=== PATIENT | male | born 1955 | race Caucasian/White ===

== ENCOUNTER 2019-10-12 18:20 | Emergency (ER) | payer MEDICARE, MEDICAID ==
[2019-10-12] MEDS ORDERED: MVI, Adult with Vitamin K 10 ML, Folic Acid 1 MG, Thiamine 100 MG, Magnesium Sulfate 2 ... IV ONE ×5 (18:35)
--- NOTE | 2019-10-12 18:38 | EDM.PDOC ---
ED HPI GENERAL MEDICAL PROBLEM - General Chief Complaint: General Stated Complaint: leg weakness Time Seen by Provider: 10/12/19 18:23 Source of Information: Reports: Patient, EMS, Other (The patients mothers animal cruelty investigation supervisor) History Limitations: Reports: No Limitations - History of Present Illness INITIAL COMMENTS - FREE TEXT/NARRATIVE: This patient is a 63 year old male that presents to the ER via EMS. Patient reports that he had fallen today while walking to the fridge to grab a beer. Patient reports that his legs felt weak bilaterally and he fell to the ground. Patient reports that he has fallen many times. EMS has reported patient has a known history of frequent falls and refusing ambulance transfers. EMS has reported today the patient lives in the home of his 90 year old mother and his mother reported she did not want him in the house anymore. EMS reports that the patient was unable to get up form the floor and took two of them to help him onto the EMS cot due to bilateral leg weakness. The patient denies injury. He denies hitting his head, loc, n, v, vision changes. His only complaints is 8/10 lower back pain, but he states "I have had this for years, not new today." The patient also reports that he has been short of breath for about 2 years and not any different today. He reports seeing a PCP for this without answers. The patient reports he smokes about 4 cigs a day, drinks 2 cans of beer a day. Patient uses a walker and wheelchair at home in the house. Onset: Today Onset Date: 10/12/19 Duration: Hour(s): (1) Front/Back Body Image: 1 - multiple superficial skin tear abrasions to the RUE. Severity: Mild Improves with: Reports: None Worsens with: Reports: None Associated Symptoms: Reports: Shortness of Breath (about 2 years), Weakness (generally). Denies: Confusion, Chest Pain, Cough, cough w sputum, Diaphoresis, Fever/Chills, Headaches, Loss of Appetite, Malaise, Nausea/Vomiting, Rash, Seizure, Syncope Lower Back Pain Score (Numeric/FACES): 8 - Related Data Allergies Allergy/AdvReac Type Severity Reaction Status Date / Time No Known Allergies Allergy Verified 10/12/19 18:30 Home Meds: Home Meds . [No Known Home Meds] 10/12/19 [History] Past Medical History - Infectious Disease History Infectious Disease History: Reports: None - Past Surgical History Musculoskeletal Surgical History: Reports: Other (See Below) Other Musculoskeletal Surgeries/Procedures:: knee surgery; "staph infection in my knee" Social & Family History - Tobacco Use Smoking Status *Q: Current Every Day Smoker Years of Tobacco use: 30 Packs/Tins Daily: 0.5 - Caffeine Use Caffeine Use: Reports: Soda - Recreational Drug Use Recreational Drug Use: No ED ROS GENERAL - Review of Systems Review Of Systems: See Below Constitutional: Reports: Weakness (generalized) HEENT: Reports: No Symptoms Respiratory: Reports: Shortness of Breath. Denies: Cough, Sputum Cardiovascular: Denies: Chest Pain, Dyspnea on Exertion, Edema, Lightheadedness, Palpitations, Syncope Endocrine: Reports: No Symptoms GI/Abdominal: Reports: No Symptoms. Denies: Abdominal Pain, Diarrhea, Nausea, Vomiting : Reports: No Symptoms Musculoskeletal: Reports: Back Pain (lower chronic for years) Skin: Reports: Wound (RUE) Neurological: Denies: Headache, Numbness, Seizure, Syncope, Tingling, Weakness, Change in Speech Psychiatric: Reports: No Symptoms Hematologic/Lymphatic: Reports: No Symptoms Immunologic: Reports: No Symptoms ED EXAM, GENERAL - Physical Exam Exam: See Below Exam Limited By: Intoxication General Appearance: Other (Disheveled, odorous) Eye Exam: Bilateral Eye: EOMI, Normal Inspection, PERRL Ears: Normal External Exam, Normal Canal, Hearing Grossly Normal, Normal TMs Ear Exam: Bilateral Ear: Auricle Normal, Canal Normal, TM normal Nose: Normal Inspection, Normal Mucosa, No Blood Throat/Mouth: Normal Oropharynx, Normal Voice, No Airway Compromise, Other (very significant poor dental hygeine, black partially missing teeth, decay. ) Head: Atraumatic, Normocephalic Neck: Normal Inspection, Supple, Non-Tender, Full Range of Motion. No: Tender Lateral, Tender Midline Respiratory/Chest: No Respiratory Distress, Lungs Clear, Normal Breath Sounds, No Accessory Muscle Use, Chest Non-Tender Cardiovascular: Normal Peripheral Pulses, No Edema, Tachycardia (116 on exam) Peripheral Pulses: 2+: Radial (L), Radial (R), Posterior Tibial (L), Posterior Tibial (R) GI/Abdominal: Soft, Non-Tender, No Organomegaly Back Exam: Normal Inspection, Full Range of Motion. No: CVA Tenderness (L), CVA Tenderness (R), Decreased Range of Motion, Paraspinal Tenderness, Vertebral Tenderness Extremities: Normal Range of Motion, Non-Tender, No Pedal Edema, Normal Capillary Refill Neurological: Alert, Oriented, CN II-XII Intact, Normal Cognition, No Motor/Sensory Deficits Psychiatric: Other (Initially argumentative, but now during exam is following commands without issue.) Skin Exam: Wound/Incision (multiple superficial skin tear abrasions to the RUE.) EKG INTERPRETATION EKG Date: 10/12/19 Time: 19:04 Rhythm: Other (sinus tach) Rate (Beats/Min): 101 QRS: Normal ST-T: Normal QT: Normal Comparison: NA - No Prior EKG Course - Vital Signs Last Recorded V/S: Last Vital Signs Temp 98.1 F 10/12/19 18:23 Pulse 118 H 10/12/19 18:23 Resp 18 10/12/19 18:23 BP 139/84 10/12/19 18:23 Pulse Ox 100 10/12/19 18:23 - Orders/Labs/Meds Orders: Active Orders 24 hr Category Date Time Status Vaccines to be Administered [RC] PER UNIT ROUTINE Care 10/12/19 18:50 Active Cervical Spine wo Cont [CT] Stat Exams 10/12/19 18:30 Taken Chest 1V Frontal [CR] Stat Exams 10/12/19 18:30 Taken Head wo Cont [CT] Stat Exams 10/12/19 18:30 Taken Labs: Laboratory Tests 10/12/19 10/12/19 10/12/19 Range/Units 18:33 18:33 18:33 WBC 4.8 L (5.0-10.0) 10^3/uL RBC 3.43 L (4.50-6.00) 10^6/uL Hgb 11.9 L (14.0-18.0) g/dL Hct 34.3 L (40.0-54.0) % MCV 100.0 H (82.0-94.0) fL MCH 34.7 H (27.0-32.0) pg MCHC 34.7 (33.0-38.0) g/dL RDW Coeff of Ronnie 14.8 (11.0-15.0) % Plt Count 203 (150-400) 10^3/uL Neut % (Auto) 53.6 (35-85) % Lymph % (Auto) 34.7 (10-55) % Armstrong % (Auto) 10.7 (0-16) % Eos % (Auto) 0.6 (0-5) % Baso % (Auto) 0.4 (0-3) % Neut # (Auto) 2.54 (1.80-7.00) 10^3/uL Lymph # (Auto) 1.65 (1.00-4.80) 10^3/uL Armstrong # (Auto) 0.51 (0.00-0.80) 10^3/uL Eos # (Auto) 0.03 (0.00-0.45) 10^3/uL Baso # (Auto) 0.02 10^3/uL PT (9.7-12.3) SEC INR (0.92-1.18) Sodium (136-145) mEq/L Potassium (3.5-5.0) mEq/L Chloride (98-106) mEq/L Carbon Dioxide (21-32) mmol/L BUN (7-18) mg/dL Creatinine (0.7-1.3) mg/dL Est Cr Clr Drug Dosing mL/min Estimated GFR (MDRD) (>=60) mL/min Glucose (75-99) mg/dL Calcium (8.4-10.1) mg/dL Total Bilirubin (0.0-1.0) mg/dL AST (15-37) U/L ALT (12-78) U/L Alkaline Phosphatase (46-116) U/L Lactate Dehydrogenase (100-190) U/L Creatine Kinase (35-232) U/L Troponin I (0.00-0.06) ng/mL Total Protein (6.4-8.2) g/dL Albumin (3.4-5.0) g/dL Urine Color Yellow (YELLOW) Urine Appearance Clear (CLEAR) Urine pH 6.0 (4.5-8.0) Ur Specific [place] 1.020 (1.003-1.020) Urine Protein Negative (NEGATIVE) mg/dL Urine Glucose (UA) Negative (NEGATIVE) mg/dL Urine Ketones Negative (NEGATIVE) mg/dL Urine Occult Blood Negative (NEGATIVE) Urine Nitrite Negative (NEGATIVE) Urine Bilirubin Negative (NEGATIVE) Urine Urobilinogen 0.2 (0.2-1.0) EU/dL Ur Leukocyte Esterase Negative (NEGATIVE) Urine RBC Not seen (0-5) /HPF Urine WBC Not seen (0-5) /HPF Urine Opiates Screen Negative (NEGATIVE) Ur Oxycodone Screen Negative (NEGATIVE) Urine Methadone Screen Negative (NEGATIVE) Ur Barbiturates Screen Negative (NEGATIVE) U Tricyclic Antidepress Negative (NEGATIVE) Ur Phencyclidine Scrn Negative (NEGATIVE) Ur Amphetamine Screen Negative (NEGATIVE) U Methamphetamines Scrn Negative (NEGATIVE) Urine MDMA Screen Negative (NEGATIVE) U Benzodiazepines Scrn Negative (NEGATIVE) Urine Cocaine Screen Negative (NEGATIVE) U Marijuana (THC) Screen Negative (NEGATIVE) Ethyl Alcohol (0-3) mg/dL 10/12/19 10/12/19 Range/Units 18:33 18:35 WBC (5.0-10.0) 10^3/uL RBC (4.50-6.00) 10^6/uL Hgb (14.0-18.0) g/dL Hct (40.0-54.0) % MCV (82.0-94.0) fL MCH (27.0-32.0) pg MCHC (33.0-38.0) g/dL RDW Coeff of Ronnie (11.0-15.0) % Plt Count (150-400) 10^3/uL Neut % (Auto) (35-85) % Lymph % (Auto) (10-55) % Armstrong % (Auto) (0-16) % Eos % (Auto) (0-5) % Baso % (Auto) (0-3) % Neut # (Auto) (1.80-7.00) 10^3/uL Lymph # (Auto) (1.00-4.80) 10^3/uL Armstrong # (Auto) (0.00-0.80) 10^3/uL Eos # (Auto) (0.00-0.45) 10^3/uL Baso # (Auto) 10^3/uL PT 10.3 (9.7-12.3) SEC INR 1.02 (0.92-1.18) Sodium 135 L (136-145) mEq/L Potassium 3.6 (3.5-5.0) mEq/L Chloride 97 L (98-106) mEq/L Carbon Dioxide 20 L (21-32) mmol/L BUN 7 (7-18) mg/dL Creatinine 0.8 (0.7-1.3) mg/dL Est Cr Clr Drug Dosing 85.64 mL/min Estimated GFR (MDRD) > 60 (>=60) mL/min Glucose 82 (75-99) mg/dL Calcium 8.3 L (8.4-10.1) mg/dL Total Bilirubin 0.4 (0.0-1.0) mg/dL AST 98 H (15-37) U/L ALT 81 H (12-78) U/L Alkaline Phosphatase 69 (46-116) U/L Lactate Dehydrogenase 195 H (100-190) U/L Creatine Kinase 247 H (35-232) U/L Troponin I < 0.017 (0.00-0.06) ng/mL Total Protein 7.0 (6.4-8.2) g/dL Albumin 3.8 (3.4-5.0) g/dL Urine Color (YELLOW) Urine Appearance (CLEAR) Urine pH (4.5-8.0) Ur Specific [place] (1.003-1.020) Urine Protein (NEGATIVE) mg/dL Urine Glucose (UA) (NEGATIVE) mg/dL Urine Ketones (NEGATIVE) mg/dL Urine Occult Blood (NEGATIVE) Urine Nitrite (NEGATIVE) Urine Bilirubin (NEGATIVE) Urine Urobilinogen (0.2-1.0) EU/dL Ur Leukocyte Esterase (NEGATIVE) Urine RBC (0-5) /HPF Urine WBC (0-5) /HPF Urine Opiates Screen (NEGATIVE) Ur Oxycodone Screen (NEGATIVE) Urine Methadone Screen (NEGATIVE) Ur Barbiturates Screen (NEGATIVE) U Tricyclic Antidepress (NEGATIVE) Ur Phencyclidine Scrn (NEGATIVE) Ur Amphetamine Screen (NEGATIVE) U Methamphetamines Scrn (NEGATIVE) Urine MDMA Screen (NEGATIVE) U Benzodiazepines Scrn (NEGATIVE) Urine Cocaine Screen (NEGATIVE) U Marijuana (THC) Screen (NEGATIVE) Ethyl Alcohol 143 H (0-3) mg/dL Meds: Medications Discontinued Medications Generic Name Dose Route Start Last Admin Trade Name Pilar PRN Reason Stop Dose Admin Diphtheria/Tetanus/Acell Pertussis 0.5 ml 10/12/19 18:50 10/12/19 19:25 Adacel IM 10/12/19 18:51 0.5 ml .ONCE ONE Administration Multivitamins/Minerals 10 ml/ 1,015.2 mls @ 500 mls/hr 10/12/19 18:35 10/12/19 18:51 Folic Acid 1 mg/ Thiamine HCl IV 10/12/19 20:36 500 mls/hr 100 mg/ Magnesium Sulfate 2 gm ONETIME ONE Administration / Sodium Chloride - Radiology Interpretation Free Text/Narrative:: Head Ct: No acute findings Cervical: No acute findings CXR: Emphysema, otherwise unremarkable CT Results Date: 10/12/19 CT Results Time: 19:40 - Re-Assessments/Exams Free Text/Narrative Re-Assessment/Exam: 10/12/19 18:45 Patient intoxicated with fall, will ct head and cervical. 10/12/19 19:07 I just spent 20 minutes talking with the patients mothers animal cruelty investigation supervisor. She has reported to me that the patient is scheduled Oct 19 to have an appointment with Dr. Schafer for shelter placement and has been working with [facility] on this placement. She reports that the patient is verbally abusive to his mother. She reports that he is an alcoholic and drinks a lot of beer everyday. She reports that he never showers, stinks, and is always dirty. She reports the mother who is 90 years old can not take care of him. The animal cruelty investigation supervisor (Yani) reports she has called adult protective services several times and local law enforcement is aware of the situation at the home. She requests the patient not return to the home. 10/12/19 19:34 The labs are back. I explained to the patient about his liver enzymes being elevated and dehydration. I discussed with him his alcoholism and the effects on his body and labs. I encouraged the patient to stay for hydration fluids. The patient refuses and says he just wants to go home. The patient request that I called Yani to come pick him up. I did call her, she is going to come talk to the patient. The RN asked if patient can just sign an AMA. The patient is above level ETOH and needs someone come sign him out and assume care of this patient. 10/12/19 19:48 Yani is talking to the patient, but he refuses to stay here. Yani will not give him a ride home or assume responsibility for this patient. The patient rep orts he can call other people to come get him, but he does not have his cell phone or the numbers to call other people. 10/12/19 19:59 The patient has attempted to get a hold of his neighbor Iván. Waiting call back. 10/12/19 20:12 Call back reported Iván is out of town. We then called local law enforcement to see if mother is willing to take son back into the house. Law enforcement will call us back. Patient is not homicidal or suicidal. No gait ataxia in ER now. Will discharge patient once he has a ride, as he can not walk. 10/12/19 20:18 Police called back and can give patient a ride home. Departure - Departure Time of Disposition: 20:35 Disposition: Home, Self-Care 01 Clinical Impression: Alcohol abuse, Dehydration Emphysema of lung Qualifiers: Emphysema type: unspecified Qualified Code(s): J43.9 - Emphysema, unspecified Fall Qualifiers: Encounter type: initial encounter Qualified Code(s): W19.XXXA - Unspecified fall, initial encounter - Discharge Information *PRESCRIPTION DRUG MONITORING PROGRAM REVIEWED*: Not Applicable *COPY OF PRESCRIPTION DRUG MONITORING REPORT IN PATIENT MALENA: Not Applicable Instructions: Chronic Obstructive Pulmonary Disease, [id number], Dehydration, Adult, [id number], Alcohol Abuse and Nutrition Referrals: PCP,None [Primary Care Provider] - Forms: ED Department Discharge Additional Instructions: Followup with Dr. Schafer Go home and rest Drink plenty of fluids Sepsis Event Note (ED) - Evaluation Sepsis Screening Result: No Definite Risk - Focused Exam Vital Signs: Vital Signs Temp Pulse Resp BP Pulse Ox 10/12/19 18:23 98.1 F 118 H 18 139/84 100 - My Orders Last 24 Hours: My Active Orders 10/12/19 18:30 Cervical Spine wo Cont [CT] Stat Chest 1V Frontal [CR] Stat Head wo Cont [CT] Stat 10/12/19 18:50 Vaccines to be Administered [RC] PER UNIT ROUTINE - Assessment/Plan Last 24 Hours: My Active Orders 10/12/19 18:30 Cervical Spine wo Cont [CT] Stat Chest 1V Frontal [CR] Stat Head wo Cont [CT] Stat 10/12/19 18:50 Vaccines to be Administered [RC] PER UNIT ROUTINE Plan: PLEASE SEE RN NOTE FOR PFSH
[2019-10-12] MEDS ORDERED: Diphtheria,Pertussis(Acell),Tetanus Vaccine 0.5 ML Syringe IM ONE (18:50)
[2019-10-12 19:07] LABS: CHLORIDE,CL 97 mEq/L (98-106); SODIUM,NA 135 mEq/L (136-145)
== END 2019-10-12 21:00 | disposition home or self-care (01) ==
LOC: CC.ED 18:20
DX: S60.511A Abrasion of right hand, initial encounter (principal); J43.9 Emphysema, unspecified; E86.0 Dehydration; F10.129 Alcohol abuse with intoxication, unspecified; F17.210 Nicotine dependence, cigarettes, uncomplicated; Z23 Encounter for immunization; Y90.6 Blood alcohol level of 120-199 mg/100 ml; W19.XXXA Unspecified fall, initial encounter
CPT/HCPCS: 36415; 70450; 71045; 72125; 80053; 80305-QW; 80307; 81001; 82550; 83615; 84484; 85025; 85610; 90471; 90715; 93005; 96365; 96366; 99284; 99285-25; J3411; J3475; J3490; J7030

== ENCOUNTER 2019-11-04 19:13 | Inpatient (IN) | payer MEDICARE, MEDICAID ==
--- NOTE | 2019-11-04 19:29 | EDM.PDOC ---
ED HPI GENERAL MEDICAL PROBLEM - General Chief Complaint: General Stated Complaint: fall Time Seen by Provider: 11/04/19 19:20 Source of Information: Reports: Patient History Limitations: Reports: No Limitations - History of Present Illness INITIAL COMMENTS - FREE TEXT/NARRATIVE: Amadeo is a 63 yo male who presents to the ED via [facility] with c/o fall. Apparently has been having frequent falls the last few months, which is very evident as patient has bruises and superficial skin abrasions in different healing stages throughout. Was unable to get up so called EMS. EMS reports they have been called to his house numerous time this week already. He had refused to be brought in previously, but was agreeable this time. Has been worked up for this ataxic gait in the past. 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 Apparently patient has been living with his 90 yo mother who is unable to care for him. He is supposed to be admitted to [facility] but has to be sober prior to admit, which he has been unable to do. Did see his PCP, Dr. Schafer earlier this week and was advised to be admitted to the hospital for his weakness, to which he refused. Currently, he denies any pain. He does not offer any complaints other than his chronic weakness, ringing in ears, and gait disturbance. Reports he smokes 4 cigarettes per day and only drinks 2 beers a day. Patient is obviously intoxicated. Onset: Gradual Associated Symptoms: Reports: Shortness of Breath, Weakness. Denies: Confusion, Chest Pain, Cough, cough w sputum, Diaphoresis, Fever/Chills, Headaches, Loss of Appetite, Malaise, Nausea/Vomiting, Rash, Seizure, Syncope Lower Back Pain Score (Numeric/FACES): 8 Headache Pain Score (Numeric/FACES): 9 - Related Data Allergies Allergy/AdvReac Type Severity Reaction Status Date / Time No Known Allergies Allergy Verified 11/04/19 19:23 Home Meds: Home Meds Propranolol HCl [Inderal Xl] 80 mg PO DAILY 11/04/19 [History] Tamsulosin [Flomax] 0.4 mg PO DAILY 11/04/19 [History] traMADol HCl [Tramadol HCl] 50 mg PO Q8HR PRN 11/04/19 [History] Past Medical History Psychiatric History: Reports: Addiction - Infectious Disease History Infectious Disease History: Reports: None - Past Surgical History Musculoskeletal Surgical History: Reports: Other (See Below) Other Musculoskeletal Surgeries/Procedures:: knee surgery; "staph infection in my knee" Social & Family History - Tobacco Use Smoking Status *Q: Current Every Day Smoker - Caffeine Use Caffeine Use: Reports: Soda - Alcohol Use Alcohol Use History: Yes Alcohol Use Frequency: Binges, Daily - Recreational Drug Use Recreational Drug Use: No - Living Situation & Occupation Occupation: Unemployed ED ROS GENERAL - Review of Systems Review Of Systems: Comprehensive ROS is negative, except as noted in HPI. Constitutional: Reports: Weakness Respiratory: Reports: Shortness of Breath. Denies: Cough Cardiovascular: Denies: Chest Pain, Edema, Lightheadedness, Syncope Endocrine: Reports: No Symptoms GI/Abdominal: Reports: No Symptoms. Denies: Abdominal Pain, Diarrhea, Nausea, Vomiting : Reports: No Symptoms Musculoskeletal: Reports: Back Pain Skin: Reports: Bruising, Other (skin tears/abrasions) Neurological: Reports: Headache, Difficulty Walking, Weakness. Denies: Confusion, Dizziness, Numbness, Paresthesia, Tingling, Tremors Psychiatric: Reports: Agitation Hematologic/Lymphatic: Reports: Easy Bruising ED EXAM, GENERAL - Physical Exam Exam: See Below Exam Limited By: Intoxication General Appearance: Alert, WD/WN, No Apparent Distress Eye Exam: Bilateral Eye: EOMI, Normal Fundi, Normal Inspection, PERRL Ears: Normal External Exam, Normal Canal, Hearing Grossly Normal, Normal TMs Nose: Normal Inspection, Normal Mucosa, No Blood Throat/Mouth: Other (missing teeth, rotted teeth, poor dentition) Head: Atraumatic, Normocephalic Neck: Normal Inspection, Supple, Non-Tender, Full Range of Motion Respiratory/Chest: No Respiratory Distress, Lungs Clear, Normal Breath Sounds, No Accessory Muscle Use, Chest Non-Tender Cardiovascular: Regular Rate, Rhythm, No Edema, Tachycardia GI/Abdominal: Normal Bowel Sounds, Soft, Non-Tender, No Organomegaly, No Distention, No Abnormal Bruit, No Mass Back Exam: Normal Inspection, Full Range of Motion, NT Extremities: Normal Range of Motion, Non-Tender, No Pedal Edema, Normal Capillary Refill Neurological: Alert, Oriented, Normal Cognition, No Motor/Sensory Deficits Psychiatric: Anxious, Other (Intoxicated) Skin Exam: Warm, Dry, Ecchymosis (generalized, significant bruising to shoulder and chest wall ), Wound/Incision (generalized superficial skin tears/abrasions to BUE and bilateral knees) Course - Vital Signs Last Recorded V/S: Last Vital Signs Temp 98.7 F 11/05/19 15:43 Pulse 83 11/05/19 15:43 Resp 18 11/05/19 15:43 BP 119/66 11/05/19 15:43 Pulse Ox 97 11/05/19 15:43 - Orders/Labs/Meds Orders: Medication Orders Chlordiazepoxide HCl (Librium) 10 mg PO BID [facility] Last Admin: 11/05/19 07:49 Dose: 10 mg Documented by: EFFIE Diazepam (Valium.) 5 mg PO TID PRN PRN Reason: Withdrawal Symptoms Enoxaparin Sodium (Lovenox) 40 mg SUBCUT Q24H [facility] Last Admin: 11/04/19 22:18 Dose: 40 mg Documented by: NITISH Folic Acid (Folic Acid) 1 mg PO DAILY [facility] Last Admin: 11/05/19 07:49 Dose: 1 mg Documented by: EFFIE Sodium Chloride (Normal Saline) 1,000 mls @ 125 mls/hr IV ASDIRECTED [facility] Last Admin: 11/05/19 14:44 Dose: 125 mls/hr Documented by: Infusion: 11/05/19 14:06 Dose: 125 mls/hr Documented by: Admin: 11/05/19 06:06 Dose: 125 mls/hr Documented by: ANN MARIE Infusion: 11/05/19 06:06 Dose: 125 mls/hr Documented by: ANN MARIE Admin: 11/04/19 22:14 Dose: 125 mls/hr Documented by: NITISH Ibuprofen (Motrin) 600 mg PO Q6H PRN PRN Reason: Pain/Fever Last Admin: 11/05/19 08:51 Dose: 600 mg Documented by: EFFIE Lorazepam (Ativan) 1 mg IVPUSH Q2H PRN PRN Reason: Withdrawal Symptoms Last Admin: 11/05/19 13:43 Dose: 1 mg Documented by: Admin: 11/05/19 02:50 Dose: 1 mg Documented by: Admin: 11/04/19 22:14 Dose: 1 mg Documented by: NITISH Nicotine (Habitrol) 14 mg TRDERM DAILY [facility] Last Admin: 11/05/19 07:50 Dose: 14 mg Documented by: Admin: 11/04/19 22:41 Dose: 14 mg Documented by: NITISH Ondansetron HCl (Zofran) 4 mg IV Q6H PRN PRN Reason: Nausea/Vomiting Polyethylene Glycol (Miralax) 17 gm PO DAILY PRN PRN Reason: Constipation Last Admin: 11/05/19 07:52 Dose: 17 gm Documented by: EFFIE Propranolol HCl (Inderal La) 80 mg PO DAILY [facility] Last Admin: 11/05/19 07:49 Dose: 80 mg Documented by: EFFIE Tamsulosin HCl (Flomax) 0.4 mg PO BEDTIME [facility] Thiamine HCl (Vitamin B-1) 100 mg IVPUSH DAILY [facility] Last Admin: 11/05/19 07:50 Dose: 100 mg Documented by: EFFIE Labs: Laboratory Tests 11/04/19 11/04/19 11/04/19 Range/Units 19:27 19:27 19:35 WBC 6.2 (5.0-10.0) 10^3/uL RBC 3.46 L (4.50-6.00) 10^6/uL Hgb 12.5 L (14.0-18.0) g/dL Hct 34.6 L (40.0-54.0) % MCV 100.0 H (82.0-94.0) fL MCH 36.1 H (27.0-32.0) pg MCHC 36.1 (33.0-38.0) g/dL RDW Coeff of Ronnie 13.3 (11.0-15.0) % Plt Count 130 L (150-400) 10^3/uL Neut % (Auto) 50.5 (35-85) % Lymph % (Auto) 39.5 (10-55) % [place] % (Auto) 9.4 (0-16) % Eos % (Auto) 0.3 (0-5) % Baso % (Auto) 0.3 (0-3) % Neut # (Auto) 3.11 (1.80-7.00) 10^3/uL Lymph # (Auto) 2.44 (1.00-4.80) 10^3/uL Canadian # (Auto) 0.58 (0.00-0.80) 10^3/uL Eos # (Auto) 0.02 (0.00-0.45) 10^3/uL Baso # (Auto) 0.02 10^3/uL PT (9.7-12.3) SEC INR (0.92-1.18) Sodium (136-145) mEq/L Potassium (3.5-5.0) mEq/L Chloride (98-106) mEq/L Carbon Dioxide (21-32) mmol/L BUN (7-18) mg/dL Creatinine (0.7-1.3) mg/dL Est Cr Clr Drug Dosing mL/min Estimated GFR (MDRD) (>=60) mL/min Glucose (75-99) mg/dL Calcium (8.4-10.1) mg/dL Total Bilirubin (0.0-1.0) mg/dL AST (15-37) U/L ALT (12-78) U/L Alkaline Phosphatase (46-116) U/L Lactate Dehydrogenase (100-190) U/L Creatine Kinase (35-232) U/L Troponin I (0.00-0.06) ng/mL C-Reactive Protein (0.2-0.8) mg/dL Total Protein (6.4-8.2) g/dL Albumin (3.4-5.0) g/dL Urine Color Light yellow (YELLOW) Urine Appearance Clear (CLEAR) Urine pH 6.0 (4.5-8.0) Ur Specific [place] 1.010 (1.003-1.020) Urine Protein Negative (NEGATIVE) mg/dL Urine Glucose (UA) Negative (NEGATIVE) mg/dL Urine Ketones Negative (NEGATIVE) mg/dL Urine Occult Blood Trace-lysed H (NEGATIVE) Urine Nitrite Negative (NEGATIVE) Urine Bilirubin Negative (NEGATIVE) Urine Urobilinogen 0.2 (0.2-1.0) EU/dL Ur Leukocyte Esterase Negative (NEGATIVE) Urine RBC 0-5 (0-5) /HPF Urine WBC Not seen (0-5) /HPF Ur Epithelial Cells Occasional H (NOT SEEN) /HPF Urine Bacteria Occasional H (NOT SEEN) /HPF Urine Opiates Screen Negative (NEGATIVE) Ur Oxycodone Screen Negative (NEGATIVE) Urine Methadone Screen Negative (NEGATIVE) Ur Barbiturates Screen Negative (NEGATIVE) U Tricyclic Antidepress Negative (NEGATIVE) Ur Phencyclidine Scrn Negative (NEGATIVE) Ur Amphetamine Screen Negative (NEGATIVE) U Methamphetamines Scrn Negative (NEGATIVE) Urine MDMA Screen Negative (NEGATIVE) U Benzodiazepines Scrn Negative (NEGATIVE) Urine Cocaine Screen Negative (NEGATIVE) U Marijuana (THC) Screen Negative (NEGATIVE) Ethyl Alcohol (0-3) mg/dL 11/04/19 11/04/19 Range/Units 19:35 19:35 WBC (5.0-10.0) 10^3/uL RBC (4.50-6.00) 10^6/uL Hgb (14.0-18.0) g/dL Hct (40.0-54.0) % MCV (82.0-94.0) fL MCH (27.0-32.0) pg MCHC (33.0-38.0) g/dL RDW Coeff of Ronnie (11.0-15.0) % Plt Count (150-400) 10^3/uL Neut % (Auto) (35-85) % Lymph % (Auto) (10-55) % [place] % (Auto) (0-16) % Eos % (Auto) (0-5) % Baso % (Auto) (0-3) % Neut # (Auto) (1.80-7.00) 10^3/uL Lymph # (Auto) (1.00-4.80) 10^3/uL Canadian # (Auto) (0.00-0.80) 10^3/uL Eos # (Auto) (0.00-0.45) 10^3/uL Baso # (Auto) 10^3/uL PT 9.2 L (9.7-12.3) SEC INR 0.91 L (0.92-1.18) Sodium 131 L (136-145) mEq/L Potassium 4.0 (3.5-5.0) mEq/L Chloride 94 L (98-106) mEq/L Carbon Dioxide 24 (21-32) mmol/L BUN 5 L (7-18) mg/dL Creatinine 0.6 L (0.7-1.3) mg/dL Est Cr Clr Drug Dosing 90.56 mL/min Estimated GFR (MDRD) > 60 (>=60) mL/min Glucose 90 (75-99) mg/dL Calcium 8.3 L (8.4-10.1) mg/dL Total Bilirubin 0.8 (0.0-1.0) mg/dL AST 234 H (15-37) U/L ALT 95 H (12-78) U/L Alkaline Phosphatase 82 (46-116) U/L Lactate Dehydrogenase 507 H (100-190) U/L Creatine Kinase 3143 H (35-232) U/L Troponin I < 0.017 (0.00-0.06) ng/mL C-Reactive Protein 3.0 H (0.2-0.8) mg/dL Total Protein 7.4 (6.4-8.2) g/dL Albumin 3.9 (3.4-5.0) g/dL Urine Color (YELLOW) Urine Appearance (CLEAR) Urine pH (4.5-8.0) Ur Specific [place] (1.003-1.020) Urine Protein (NEGATIVE) mg/dL Urine Glucose (UA) (NEGATIVE) mg/dL Urine Ketones (NEGATIVE) mg/dL Urine Occult Blood (NEGATIVE) Urine Nitrite (NEGATIVE) Urine Bilirubin (NEGATIVE) Urine Urobilinogen (0.2-1.0) EU/dL Ur Leukocyte Esterase (NEGATIVE) Urine RBC (0-5) /HPF Urine WBC (0-5) /HPF Ur Epithelial Cells (NOT SEEN) /HPF Urine Bacteria (NOT SEEN) /HPF Urine Opiates Screen (NEGATIVE) Ur Oxycodone Screen (NEGATIVE) Urine Methadone Screen (NEGATIVE) Ur Barbiturates Screen (NEGATIVE) U Tricyclic Antidepress (NEGATIVE) Ur Phencyclidine Scrn (NEGATIVE) Ur Amphetamine Screen (NEGATIVE) U Methamphetamines Scrn (NEGATIVE) Urine MDMA Screen (NEGATIVE) U Benzodiazepines Scrn (NEGATIVE) Urine Cocaine Screen (NEGATIVE) U Marijuana (THC) Screen (NEGATIVE) Ethyl Alcohol 272 H (0-3) mg/dL Meds: Medications Generic Name Dose Route Start Last Admin Trade Name Freq PRN Reason Stop Dose Admin Chlordiazepoxide HCl 10 mg 11/05/19 08:00 11/05/19 07:49 Librium PO 10 mg BID NIMESH Administration Diazepam 5 mg 11/04/19 20:50 Valium. PO TID PRN Withdrawal Symptoms Enoxaparin Sodium 40 mg 11/04/19 21:00 11/04/19 22:18 Lovenox SUBCUT 40 mg Q24H NIMESH Administration Folic Acid 1 mg 11/05/19 08:00 11/05/19 07:49 Folic Acid PO 1 mg DAILY NIMESH Administration Sodium Chloride 1,000 mls @ 125 mls/hr 11/04/19 20:50 11/05/19 14:44 Normal Saline IV 125 mls/hr ASDIRECTED NIMESH Administration Ibuprofen 600 mg 11/05/19 07:52 11/05/19 08:51 Motrin PO 600 mg Q6H PRN Administration Pain/Fever Lorazepam 1 mg 11/04/19 20:50 11/05/19 13:43 Ativan IVPUSH 1 mg Q2H PRN Administration Withdrawal Symptoms Nicotine 14 mg 11/04/19 22:30 11/05/19 07:50 Habitrol TRDERM 14 mg DAILY NIMESH Administration Ondansetron HCl 4 mg 11/04/19 20:50 Zofran IV Q6H PRN Nausea/Vomiting Polyethylene Glycol 17 gm 11/04/19 20:50 11/05/19 07:52 Miralax PO 17 gm DAILY PRN Administration Constipation Propranolol HCl 80 mg 11/05/19 08:00 11/05/19 07:49 Inderal La PO 80 mg DAILY NIMESH Administration Tamsulosin HCl 0.4 mg 11/05/19 20:00 Flomax PO BEDTIME NIMESH Thiamine HCl 100 mg 11/05/19 08:00 11/05/19 07:50 Vitamin B-1 IVPUSH 100 mg DAILY NIMESH Administration Discontinued Medications Generic Name Dose Route Start Last Admin Trade Name Freq PRN Reason Stop Dose Admin Chlordiazepoxide HCl 10 mg 11/04/19 20:50 Librium PO BID PRN Withdrawal Symptoms Multivitamins/Minerals 10 ml/ 1,015.2 mls @ 500 mls/hr 11/04/19 19:50 11/04/19 20:07 Folic Acid 1 mg/ Thiamine HCl IV 11/04/19 21:51 500 mls/hr 100 mg/ Magnesium Sulfate 2 gm ONETIME ONE Administration / Sodium Chloride - Re-Assessments/Exams Free Text/Narrative Re-Assessment/Exam: 11/04/19 20:09 Discussed labs and EKG with patient. Recommend admission for weakness and ETOH abuse. Patient needs to be sober and free of withdrawal symptoms prior to [facility] admit. Patient is agreeable with admission. He says he knows he needs to go to the long-term. Departure - Departure Time of Disposition: 20:11 Disposition: Admitted As Inpatient 64 Condition: Poor Clinical Impression: Rhabdomyolysis, Alcohol abuse, Frequent falls - Discharge Information *PRESCRIPTION DRUG MONITORING PROGRAM REVIEWED*: Not Applicable *COPY OF PRESCRIPTION DRUG MONITORING REPORT IN PATIENT MALENA: Not Applicable Sepsis Event Note (ED) - Evaluation Sepsis Screening Result: No Definite Risk - Problem List & Annotations (1) Rhabdomyolysis SNOMED Code(s): 515934940 Code(s): M62.82 - RHABDOMYOLYSIS Status: Acute Current Visit: Yes (2) Frequent falls SNOMED Code(s): 447445104 Code(s): R29.6 - REPEATED FALLS Status: Acute Current Visit: Yes (3) Alcohol abuse SNOMED Code(s): 28321234 Code(s): F10.10 - ALCOHOL ABUSE, UNCOMPLICATED Status: Acute Current Visit: No - Assessment/Plan Admission H&P: Please use this note as an admission H&P Assessment:: Rhabdomyolysis Frequent Falls Alcohol Abuse Vulnerable Adult Plan: Patient's CK elevated to 3143. He has multiple bruises and skin tears/abrasions from multiple falls. Kept falling and unable to get up. EMS called to house on multiple occurrences over the last few weeks. NA 131. ETOH 272. Elevated liver enzymes, likely liver cirrhosis. Patient with longstanding ETOH abuse. Has been recommended multiple times he needs admit to SNF as he is unable to adequately care for himself and is living with his 90 yo mother who also cannot care for him and wants him out of her house. Patient reports he is agreeable to hospital admit and SNF placement at this time. Consulted with Dr. Schafer. Will admit to acute with telemetry. Patient given banana bag in ED. Will start IVF at rate of 125 mls/hr. Start daily folic acid and thiamine. Nursing staff to start CIWAs 1x/shift until patient develops withdrawal symptoms then increas, suspect over the next 48-72 hrs. Ativan and Valium ordered PRN. Start 10 mg Librium. PT referral for strengthening. Repeat labs in am. Patient transferred to floor in stable condition.
[2019-11-04] MEDS ORDERED: MVI, Adult with Vitamin K 10 ML, Folic Acid 1 MG, Thiamine 100 MG, Magnesium Sulfate 2 ... IV ONE ×5 (19:50)
[2019-11-04 20:02] LABS: CHLORIDE,CL 94 mEq/L (98-106); SODIUM,NA 131 mEq/L (136-145)
[2019-11-04] MEDS ORDERED: chlordiazePOXIDE 10 MG Cap PO PRN (20:50)
[2019-11-04] MEDS ORDERED: Ondansetron 4 MG/2 ML SDV IV PRN (20:50)
[2019-11-04] MEDS ORDERED: Polyethylene Glycol 3350 Powder 17 GM Packet PO PRN (20:50)
[2019-11-04] MEDS: LORazepam 2 MG/ML Syringe IVPUSH PRN (22:14)
[2019-11-04] MEDS: Sodium Chloride 0.9% 1,000 ML IV SCH (22:14)
[2019-11-04] MEDS: Enoxaparin 40 MG/0.4 ML Syringe SUBCUT SCH ×2 (22:15→22:18)
[2019-11-04] MEDS: Nicotine 14 MG/24 Hr Patch TRDERM SCH (22:41)
[2019-11-05] MEDS: LORazepam 2 MG/ML Syringe IVPUSH PRN ×3 (02:50→20:41)
[2019-11-05] MEDS: Sodium Chloride 0.9% 1,000 ML IV SCH ×3 (06:06→22:44)
[2019-11-05] MEDS: chlordiazePOXIDE 10 MG Cap PO SCH ×2 (07:49→20:34)
[2019-11-05] MEDS: Folic Acid 1 MG Tab PO SCH (07:49)
[2019-11-05] MEDS: Propranolol 80 MG Cap.ER PO SCH (07:49)
[2019-11-05] MEDS: Thiamine 200 MG/2 ML MDV IVPUSH SCH (07:50)
[2019-11-05] MEDS: Nicotine 14 MG/24 Hr Patch TRDERM SCH (07:50)
[2019-11-05 08:00] LABS: CHLORIDE,CL 102 mEq/L (98-106); SODIUM,NA 136 mEq/L (136-145)
[2019-11-05] MEDS: Ibuprofen 200 MG Tab PO PRN (08:51)
--- NOTE | 2019-11-05 09:42 | PCM.PN ---
- General Info Date of Service: 11/05/19 Admission Dx/Problem (Free Text): Rhabdomylosis Alcohol Abuse Vulnerable Adult Frequent Falls Subjective Update: Sánchez is a 63 yo male who was admitted last evening with rhabdomyolysis, frequent falls, alcohol intoxication, and vulnerable adult. He had an uneventful evening. Nursing reports he slept well. They were able to get him showered and cleaned up. All skin tears were wrapped. Patient reports he is feeling well this morning. He does look much better this morning. Is much more calm and cooperative. His only complaint this morning is a headache. He has not currently had any other withdrawal symptoms, but did receive 2 doses of IV Ativan throughout the evening. He reports that helped him feel much better. Functional Status: Reports: Pain Controlled, Tolerating Diet, Urinating. Denies: Ambulating, New Symptoms - Review of Systems General: Reports: Weakness. Denies: Fever, Fatigue, Chills HEENT: Reports: Headaches. Denies: Sinus Congestion, Sore Throat, Visual Changes Pulmonary: Reports: Shortness of Breath. Denies: Cough Cardiovascular: Reports: No Symptoms Gastrointestinal: Reports: No Symptoms. Denies: Abdominal Pain, Diarrhea, Nausea, Vomiting Genitourinary: Reports: No Symptoms Musculoskeletal: Reports: Back Pain (lower back, chronic) Skin: Reports: Other (multiple scattered areas of ecchymosis and superficial skin tears, covered with dressing, CDI) Neurological: Reports: Headache, Difficulty Walking, Weakness (generalized). Denies: Dizziness, Numbness, Paresthesia, Tingling, Tremors Psychiatric: Denies: Confusion, Agitation, Hallucinations - Patient Data Vitals - Most Recent: Last Vital Signs Temp 99.7 F 11/05/19 08:51 Pulse 110 H 11/05/19 08:00 Resp 18 11/05/19 08:00 BP 143/83 H 11/05/19 08:00 Pulse Ox 95 11/05/19 08:00 Weight - Most Recent: 137 lb 9.6 oz I&O - Last 24 Hours: Intake & Output 11/04/19 11/05/19 11/05/19 22:59 06:59 14:59 Intake Total 983 Balance 983 Lab Results Last 24 Hours: Laboratory Results - last 24 hr 11/04/19 11/04/19 11/04/19 Range/Units 19:27 19:27 19:35 WBC 6.2 (5.0-10.0) 10^3/uL RBC 3.46 L (4.50-6.00) 10^6/uL Hgb 12.5 L (14.0-18.0) g/dL Hct 34.6 L (40.0-54.0) % MCV 100.0 H (82.0-94.0) fL MCH 36.1 H (27.0-32.0) pg MCHC 36.1 (33.0-38.0) g/dL RDW Coeff of Ronnie 13.3 (11.0-15.0) % Plt Count 130 L (150-400) 10^3/uL Neut % (Auto) 50.5 (35-85) % Lymph % (Auto) 39.5 (10-55) % [place] % (Auto) 9.4 (0-16) % Eos % (Auto) 0.3 (0-5) % Baso % (Auto) 0.3 (0-3) % Neut # (Auto) 3.11 (1.80-7.00) 10^3/uL Lymph # (Auto) 2.44 (1.00-4.80) 10^3/uL [place] # (Auto) 0.58 (0.00-0.80) 10^3/uL Eos # (Auto) 0.02 (0.00-0.45) 10^3/uL Baso # (Auto) 0.02 10^3/uL PT (9.7-12.3) SEC INR (0.92-1.18) Sodium (136-145) mEq/L Potassium (3.5-5.0) mEq/L Chloride (98-106) mEq/L Carbon Dioxide (21-32) mmol/L BUN (7-18) mg/dL Creatinine (0.7-1.3) mg/dL Est Cr Clr Drug Dosing mL/min Estimated GFR (MDRD) (>=60) mL/min Glucose (75-99) mg/dL Calcium (8.4-10.1) mg/dL Magnesium (1.8-2.4) mg/dL Total Bilirubin (0.0-1.0) mg/dL AST (15-37) U/L ALT (12-78) U/L Alkaline Phosphatase (46-116) U/L Lactate Dehydrogenase (100-190) U/L Creatine Kinase (35-232) U/L Troponin I (0.00-0.06) ng/mL C-Reactive Protein (0.2-0.8) mg/dL Total Protein (6.4-8.2) g/dL Albumin (3.4-5.0) g/dL Urine Color Light yellow (YELLOW) Urine Appearance Clear (CLEAR) Urine pH 6.0 (4.5-8.0) Ur Specific [place] 1.010 (1.003-1.020) Urine Protein Negative (NEGATIVE) mg/dL Urine Glucose (UA) Negative (NEGATIVE) mg/dL Urine Ketones Negative (NEGATIVE) mg/dL Urine Occult Blood Trace-lysed H (NEGATIVE) Urine Nitrite Negative (NEGATIVE) Urine Bilirubin Negative (NEGATIVE) Urine Urobilinogen 0.2 (0.2-1.0) EU/dL Ur Leukocyte Esterase Negative (NEGATIVE) Urine RBC 0-5 (0-5) /HPF Urine WBC Not seen (0-5) /HPF Ur Epithelial Cells Occasional H (NOT SEEN) /HPF Urine Bacteria Occasional H (NOT SEEN) /HPF Urine Opiates Screen Negative (NEGATIVE) Ur Oxycodone Screen Negative (NEGATIVE) Urine Methadone Screen Negative (NEGATIVE) Ur Barbiturates Screen Negative (NEGATIVE) U Tricyclic Antidepress Negative (NEGATIVE) Ur Phencyclidine Scrn Negative (NEGATIVE) Ur Amphetamine Screen Negative (NEGATIVE) U Methamphetamines Scrn Negative (NEGATIVE) Urine MDMA Screen Negative (NEGATIVE) U Benzodiazepines Scrn Negative (NEGATIVE) Urine Cocaine Screen Negative (NEGATIVE) U Marijuana (THC) Screen Negative (NEGATIVE) Ethyl Alcohol (0-3) mg/dL 11/04/19 11/04/19 11/05/19 Range/Units 19:35 19:35 07:30 WBC (5.0-10.0) 10^3/uL RBC (4.50-6.00) 10^6/uL Hgb (14.0-18.0) g/dL Hct (40.0-54.0) % MCV (82.0-94.0) fL MCH (27.0-32.0) pg MCHC (33.0-38.0) g/dL RDW Coeff of Ronnie (11.0-15.0) % Plt Count (150-400) 10^3/uL Neut % (Auto) (35-85) % Lymph % (Auto) (10-55) % [place] % (Auto) (0-16) % Eos % (Auto) (0-5) % Baso % (Auto) (0-3) % Neut # (Auto) (1.80-7.00) 10^3/uL Lymph # (Auto) (1.00-4.80) 10^3/uL [place] # (Auto) (0.00-0.80) 10^3/uL Eos # (Auto) (0.00-0.45) 10^3/uL Baso # (Auto) 10^3/uL PT 9.2 L (9.7-12.3) SEC INR 0.91 L (0.92-1.18) Sodium 131 L 136 (136-145) mEq/L Potassium 4.0 3.6 (3.5-5.0) mEq/L Chloride 94 L 102 (98-106) mEq/L Carbon Dioxide 24 24 (21-32) mmol/L BUN 5 L 5 L (7-18) mg/dL Creatinine 0.6 L 0.5 L (0.7-1.3) mg/dL Est Cr Clr Drug Dosing 90.56 130.03 mL/min Estimated GFR (MDRD) > 60 > 60 (>=60) mL/min Glucose 90 88 (75-99) mg/dL Calcium 8.3 L 7.9 L (8.4-10.1) mg/dL Magnesium 2.0 (1.8-2.4) mg/dL Total Bilirubin 0.8 (0.0-1.0) mg/dL AST 234 H (15-37) U/L ALT 95 H (12-78) U/L Alkaline Phosphatase 82 (46-116) U/L Lactate Dehydrogenase 507 H (100-190) U/L Creatine Kinase 3143 H 2199 H (35-232) U/L Troponin I < 0.017 (0.00-0.06) ng/mL C-Reactive Protein 3.0 H (0.2-0.8) mg/dL Total Protein 7.4 (6.4-8.2) g/dL Albumin 3.9 (3.4-5.0) g/dL Urine Color (YELLOW) Urine Appearance (CLEAR) Urine pH (4.5-8.0) Ur Specific [place] (1.003-1.020) Urine Protein (NEGATIVE) mg/dL Urine Glucose (UA) (NEGATIVE) mg/dL Urine Ketones (NEGATIVE) mg/dL Urine Occult Blood (NEGATIVE) Urine Nitrite (NEGATIVE) Urine Bilirubin (NEGATIVE) Urine Urobilinogen (0.2-1.0) EU/dL Ur Leukocyte Esterase (NEGATIVE) Urine RBC (0-5) /HPF Urine WBC (0-5) /HPF Ur Epithelial Cells (NOT SEEN) /HPF Urine Bacteria (NOT SEEN) /HPF Urine Opiates Screen (NEGATIVE) Ur Oxycodone Screen (NEGATIVE) Urine Methadone Screen (NEGATIVE) Ur Barbiturates Screen (NEGATIVE) U Tricyclic Antidepress (NEGATIVE) Ur Phencyclidine Scrn (NEGATIVE) Ur Amphetamine Screen (NEGATIVE) U Methamphetamines Scrn (NEGATIVE) Urine MDMA Screen (NEGATIVE) U Benzodiazepines Scrn (NEGATIVE) Urine Cocaine Screen (NEGATIVE) U Marijuana (THC) Screen (NEGATIVE) Ethyl Alcohol 272 H (0-3) mg/dL Med Orders - Current: Current Medications Chlordiazepoxide HCl (Librium) 10 mg PO BID [facility] Last Admin: 11/05/19 07:49 Dose: 10 mg Documented by: Diazepam (Valium.) 5 mg PO TID PRN PRN Reason: Withdrawal Symptoms Enoxaparin Sodium (Lovenox) 40 mg SUBCUT Q24H [facility] Last Admin: 11/04/19 22:18 Dose: 40 mg Documented by: Folic Acid (Folic Acid) 1 mg PO DAILY [facility] Last Admin: 11/05/19 07:49 Dose: 1 mg Documented by: Sodium Chloride (Normal Saline) 1,000 mls @ 125 mls/hr IV ASDIRECTED [facility] Last Admin: 11/05/19 06:06 Dose: 125 mls/hr Documented by: Ibuprofen (Motrin) 600 mg PO Q6H PRN PRN Reason: Pain/Fever Last Admin: 11/05/19 08:51 Dose: 600 mg Documented by: Lorazepam (Ativan) 1 mg IVPUSH Q2H PRN PRN Reason: Withdrawal Symptoms Last Admin: 11/05/19 02:50 Dose: 1 mg Documented by: Nicotine (Habitrol) 14 mg TRDERM DAILY [facility] Last Admin: 11/05/19 07:50 Dose: 14 mg Documented by: Ondansetron HCl (Zofran) 4 mg IV Q6H PRN PRN Reason: Nausea/Vomiting Polyethylene Glycol (Miralax) 17 gm PO DAILY PRN PRN Reason: Constipation Last Admin: 11/05/19 07:52 Dose: 17 gm Documented by: Propranolol HCl (Inderal La) 80 mg PO DAILY [facility] Last Admin: 11/05/19 07:49 Dose: 80 mg Documented by: Tamsulosin HCl (Flomax) 0.4 mg PO BEDTIME NIMESH Thiamine HCl (Vitamin B-1) 100 mg IVPUSH DAILY [facility] Last Admin: 11/05/19 07:50 Dose: 100 mg Documented by: Discontinued Medications Chlordiazepoxide HCl (Librium) 10 mg PO BID PRN PRN Reason: Withdrawal Symptoms Multivitamins/Minerals 10 ml/Folic Acid 1 mg/ Thiamine HCl 100 mg/ Magnesium Sulfate 2 gm / Sodium Chloride 1,015.2 mls @ 500 mls/hr IV ONETIME ONE Stop: 11/04/19 21:51 Last Admin: 11/04/19 20:07 Dose: 500 mls/hr Documented by: - Exam Quality Assessment: DVT Prophylaxis, Skin Breakdown (scattered superficial skin tears to BUE and bilateral knees) General: Alert, Oriented, Cooperative, No Acute Distress HEENT: Pupils Equal, Pupils Reactive, EOMI, Mucous Membr. Moist/[address] Neck: Supple Lungs: Clear to Auscultation, Normal Respiratory Effort Cardiovascular: Regular Rate, Regular Rhythm, Tachycardia (occasional on telemetry) GI/Abdominal Exam: Normal Bowel Sounds, Soft, Non-Tender, No Organomegaly, No Distention, No Abnormal Bruit, No Mass, Pelvis Stable Back Exam: Normal Inspection, Full Range of Motion Extremities: Normal Range of Motion, No Pedal Edema, Normal Capillary Refill Skin: Ecchymosis, Other (scattered superficial skin tears) Wound/Incisions: Dressing Dry and Intact, No Drainage Neurological: No New Focal Deficit Psy/Mental Status: Alert, Normal Affect, Normal Mood. No: Agitated, Withdrawal Symptoms (not currently, did receive 2 doses ativan throughout night) Sepsis Event Note - Evaluation Sepsis Screening Result: No Definite Risk - Focused Exam Vital Signs: Vital Signs Temp Temp Pulse Resp BP Pulse Ox 11/05/19 08:51 99.7 F 11/05/19 08:00 99.7 F 110 H 18 143/83 H 95 11/05/19 02:58 98.7 F 102 H 18 131/81 95 11/05/19 00:00 98.1 F 99 18 135/76 97 - Problem List & Annotations (1) Rhabdomyolysis SNOMED Code(s): 172623540 Code(s): M62.82 - RHABDOMYOLYSIS Status: Acute Current Visit: Yes (2) Frequent falls SNOMED Code(s): 988707615 Code(s): R29.6 - REPEATED FALLS Status: Acute Current Visit: Yes (3) Alcohol abuse SNOMED Code(s): 37247959 Code(s): F10.10 - ALCOHOL ABUSE, UNCOMPLICATED Status: Acute Current Visit: No - Problem List Review Problem List Initiated/Reviewed/Updated: Yes - My Orders Last 24 Hours: My Active Orders 11/04/19 20:20 Resuscitation Status Routine 11/04/19 20:50 LORazepam [Ativan] 1 mg IVPUSH Q2H PRN Ondansetron [Zofran] 4 mg IV Q6H PRN Sodium Chloride 0.9% [Normal Saline] 1,000 ml IV ASDIRECTED diazePAM [Valium.] 5 mg PO TID PRN polyethylene glycoL 3350 [MiraLAX] 17 gm PO DAILY PRN 11/04/19 20:50 Patient Status [ADT] Routine Cardiac Monitoring [RC] 08,1999 Oxygen Therapy [RC] .PRN Pulse Oximetry [RC] .PRN Up With Assistance [RC] .PRN Vital Signs [RC] 0000,0400,0800,1200,1600,2000 PT Evaluation and Treatment [CONS] Routine 11/04/19 21:00 Enoxaparin [Lovenox] 40 mg SUBCUT Q24H 11/04/19 22:30 Nicotine [Habitrol] 14 mg TRDERM DAILY 11/05/19 07:52 Ibuprofen [Motrin] 600 mg PO Q6H PRN 11/05/19 08:00 Folic Acid 1 mg PO DAILY Propranolol [Inderal LA] 80 mg PO DAILY Thiamine [Vitamin B-1] 100 mg IVPUSH DAILY chlordiazePOXIDE [Librium] 10 mg PO BID 11/05/19 20:00 CIWAA Assessment [RC] Q4H Tamsulosin [Flomax] 0.4 mg PO BEDTIME 11/06/19 07:00 BASIC METABOLIC PANEL,BMP [CHEM] DAILY CREATINE KINASE,CK [CHEM] DAILY 11/07/19 07:00 BASIC METABOLIC PANEL,BMP [CHEM] DAILY CREATINE KINASE,CK [CHEM] DAILY - Assessment Assessment:: Rhabdomylosis Frequent Falls Alcohol Abuse Vulnerable Adult - Plan Plan:: Patient appears to be much more relaxed and cooperative this morning. Nursing staff was kind enough to bathe him and dress his multiple superficial skin tears yesterday evening. He has not been able to care for himself for some time now. He does c/o headache this morning. Will add ibuprofen as needed. Na improved from 131 to 136. Creatinine Kinase improved from 3143 to 2199. Will continue IVF until tomorrow. Repeat labs in am. No current withdrawal symptoms. Given elevated ETOH level to 272, anticipate the next 24-48 hours patient will likely experience withdrawal symptoms. Will continue with every 4 hr CIWA assessments and increase to every 2 hours when patient starts experiencing withdrawal symptoms. Patient started on Librium BID, folic acid 1 mg daily, thiamine 100 mg daily. Will increase Librium to 20 mg BID if withdrawal symptoms start. Discussed case with Dr. Schafer, who is agreeable with plan. Consult case management for discharge planning. Potential d/c to [facility] SN[facility] Sunday or Sunday, pending withdrawal symptoms. Patient verbalized understanding and is agreeable with this plan.
[2019-11-05] MEDS: Tamsulosin 0.4 MG Cap.ER PO SCH (20:34)
[2019-11-05] MEDS: Enoxaparin 40 MG/0.4 ML Syringe SUBCUT SCH (20:40)
[2019-11-06] MEDS: LORazepam 2 MG/ML Syringe IVPUSH PRN ×7 (02:12→21:25)
[2019-11-06] MEDS: Diazepam 5 MG Tab PO PRN ×2 (02:53→15:27)
[2019-11-06] MEDS: Sodium Chloride 0.9% 1,000 ML IV SCH ×2 (06:35→16:04)
[2019-11-06] MEDS: Thiamine 200 MG/2 ML MDV IVPUSH SCH (07:34)
[2019-11-06] MEDS: Nicotine 14 MG/24 Hr Patch TRDERM SCH (07:40)
[2019-11-06] MEDS: Propranolol 80 MG Cap.ER PO SCH (07:41)
[2019-11-06] MEDS: chlordiazePOXIDE 10 MG Cap PO SCH ×3 (07:41→19:58)
[2019-11-06] MEDS: Folic Acid 1 MG Tab PO SCH (07:41)
[2019-11-06 07:59] LABS: CHLORIDE,CL 100 mEq/L (98-106); SODIUM,NA 133 mEq/L (136-145)
--- NOTE | 2019-11-06 09:31 | PCM.PN ---
- General Info Date of Service: 11/06/19 Admission Dx/Problem (Free Text): Rhabdomylosis Alcohol Abuse Vulnerable Adult Frequent Falls Functional Status: Reports: Pain Controlled, Tolerating Diet. Denies: Ambulating - Review of Systems General: Reports: Weakness, Malaise. Denies: Fever HEENT: Denies: Ear Pain, Sinus Congestion, Rhinitis Pulmonary: Denies: Shortness of Breath, Cough Cardiovascular: Denies: Chest Pain, Edema, Lightheadedness Gastrointestinal: Denies: Abdominal Pain, Nausea, Vomiting Genitourinary: Reports: No Symptoms Musculoskeletal: Reports: Shoulder Pain, Arm Pain, Back Pain Skin: Reports: Bruising Neurological: Reports: Confusion, Weakness Psychiatric: Reports: Hallucinations - Patient Data Vitals - Most Recent: Last Vital Signs Temp 98.7 F 11/06/19 04:00 Pulse 87 11/06/19 04:00 Resp 16 11/06/19 04:00 BP 120/73 11/06/19 04:00 Pulse Ox 93 L 11/06/19 04:00 Weight - Most Recent: 137 lb 9.6 oz I&O - Last 24 Hours: Intake & Output 11/05/19 11/06/19 11/06/19 22:59 06:59 14:59 Intake Total 1000 981 Balance 1000 981 Lab Results Last 24 Hours: Laboratory Results - last 24 hr 11/06/19 Range/Units 07:15 Sodium 133 L (136-145) mEq/L Potassium 3.3 L (3.5-5.0) mEq/L Chloride 100 (98-106) mEq/L Carbon Dioxide 25 (21-32) mmol/L BUN 5 L (7-18) mg/dL Creatinine 0.5 L (0.7-1.3) mg/dL Est Cr Clr Drug Dosing 130.03 mL/min Estimated GFR (MDRD) > 60 (>=60) mL/min Glucose 86 (75-99) mg/dL Calcium 8.0 L (8.4-10.1) mg/dL Total Bilirubin 1.3 H (0.0-1.0) mg/dL AST 156 H (15-37) U/L ALT 90 H (12-78) U/L Alkaline Phosphatase 73 (46-116) U/L Creatine Kinase 891 H (35-232) U/L Total Protein 6.2 L (6.4-8.2) g/dL Albumin 2.9 L (3.4-5.0) g/dL Med Orders - Current: Current Medications Chlordiazepoxide HCl (Librium) 25 mg PO BID [facility] Diazepam (Valium.) 5 mg PO TID PRN PRN Reason: Withdrawal Symptoms Last Admin: 11/06/19 02:53 Dose: 5 mg Documented by: Enoxaparin Sodium (Lovenox) 40 mg SUBCUT Q24H [facility] Last Admin: 11/05/19 20:40 Dose: 40 mg Documented by: Folic Acid (Folic Acid) 1 mg PO DAILY [facility] Last Admin: 11/06/19 07:41 Dose: 1 mg Documented by: Sodium Chloride (Normal Saline) 1,000 mls @ 125 mls/hr IV ASDIRECTED [facility] Last Admin: 11/06/19 06:35 Dose: 125 mls/hr Documented by: Ibuprofen (Motrin) 600 mg PO Q6H PRN PRN Reason: Pain/Fever Last Admin: 11/05/19 08:51 Dose: 600 mg Documented by: Lorazepam (Ativan) 1 mg IVPUSH Q2H PRN PRN Reason: Withdrawal Symptoms Last Admin: 11/06/19 08:42 Dose: 1 mg Documented by: Nicotine (Habitrol) 14 mg TRDERM DAILY [facility] Last Admin: 11/06/19 07:40 Dose: 14 mg Documented by: Ondansetron HCl (Zofran) 4 mg IV Q6H PRN PRN Reason: Nausea/Vomiting Polyethylene Glycol (Miralax) 17 gm PO DAILY PRN PRN Reason: Constipation Last Admin: 11/05/19 07:52 Dose: 17 gm Documented by: Propranolol HCl (Inderal La) 80 mg PO DAILY [facility] Last Admin: 11/06/19 07:41 Dose: 80 mg Documented by: Tamsulosin HCl (Flomax) 0.4 mg PO BEDTIME [facility] Last Admin: 11/05/19 20:34 Dose: 0.4 mg Documented by: Thiamine HCl (Vitamin B-1) 100 mg IVPUSH DAILY [facility] Last Admin: 11/06/19 07:34 Dose: 100 mg Documented by: Discontinued Medications Chlordiazepoxide HCl (Librium) 10 mg PO BID PRN PRN Reason: Withdrawal Symptoms Chlordiazepoxide HCl (Librium) 10 mg PO BID [facility] Last Admin: 11/06/19 07:41 Dose: 10 mg Documented by: Multivitamins/Minerals 10 ml/Folic Acid 1 mg/ Thiamine HCl 100 mg/ Magnesium Sulfate 2 gm / Sodium Chloride 1,015.2 mls @ 500 mls/hr IV ONETIME ONE Stop: 11/04/19 21:51 Last Admin: 11/04/19 20:07 Dose: 500 mls/hr Documented by: - Exam General: Alert, Oriented HEENT: Mucous Membr. Moist/[place] Neck: Supple Lungs: Clear to Auscultation, Normal Respiratory Effort Cardiovascular: Regular Rate, Regular Rhythm GI/Abdominal Exam: Normal Bowel Sounds, Soft, Non-Tender Back Exam: Paraspinal Tenderness Skin: Ecchymosis Wound/Incisions: Other (multiple skin tears, bruises and redness on arms and legs. Significant bruising to back.) Psy/Mental Status: Alert Sepsis Event Note - Evaluation Sepsis Screening Result: No Definite Risk - Focused Exam Vital Signs: Vital Signs Temp Pulse Resp BP Pulse Ox 11/06/19 04:00 98.7 F 87 16 120/73 93 L 11/06/19 00:00 82 - Problem List & Annotations (1) Alcohol abuse SNOMED Code(s): 84177830 Code(s): F10.10 - ALCOHOL ABUSE, UNCOMPLICATED Status: Acute Priority: High Current Visit: Yes (2) Frequent falls SNOMED Code(s): 867370671 Code(s): R29.6 - REPEATED FALLS Status: Acute Priority: High Current Visit: Yes (3) Rhabdomyolysis SNOMED Code(s): 818792117 Code(s): M62.82 - RHABDOMYOLYSIS Status: Acute Priority: High Current Visit: Yes Qualifiers: Rhabdomyolysis type: non-traumatic Qualified Code(s): M62.82 - Rhabdomyolysis (4) Dehydration SNOMED Code(s): 66823715 Code(s): E86.0 - DEHYDRATION Status: Acute Priority: High Current Visit: Yes - Problem List Review Problem List Initiated/Reviewed/Updated: Yes - My Orders Last 24 Hours: My Active Orders 11/06/19 20:00 chlordiazePOXIDE [Librium] 25 mg PO BID - Assessment Assessment:: Rhabdomylosis Frequent Falls Alcohol Abuse Vulnerable Adult - Plan Plan:: Patient appears to be much more relaxed and cooperative this morning. Nursing staff was kind enough to bathe him and dress his multiple superficial skin tears yesterday evening. He has not been able to care for himself for some time now. He does c/o headache this morning. Will add ibuprofen as needed. Na improved from 131 to 136. Creatinine Kinase improved from 3143 to 2199. Will continue IVF until tomorrow. Repeat labs in am. No current withdrawal symptoms. Given elevated ETOH level to 272, anticipate the next 24-48 hours patient will likely experience withdrawal symptoms. Will continue with every 4 hr CIWA assessments and increase to every 2 hours when patient starts experiencing withdrawal symptoms. Patient started on Librium BID, folic acid 1 mg daily, thiamine 100 mg daily. Will increase Librium to 20 mg BID if withdrawal symptoms start. Discussed case with Dr. Schafer, who is agreeable with plan. Consult case management for discharge planning. Potential d/c to [facility] SN[facility] Sunday or Sunday, pending withdrawal symptoms. Patient verbalized understanding and is agreeable with this plan. 11-06-19 Patient restless this am but cooperative. Was hallucinating last evening, was persistent about a black coat on the floor that needed to be picked up. This am, asks if the black coat was taken care of. Reoriented the patient. Denies headache today. Does have achy arms, shoulders and backs. Multiple skin tears, scabbing and bruising noted on arms. Significant bruising noted to back. Does require one nurse today for transfers, still weak. CK has much improved from 3143 on admit to 891 today. Sodium now at 133. Potassium normal. blood pressure is normal. Due to hallucinations, will increase his Librium to 20 mg TID. Recheck labs in am. child and family services worker to plan for discharge to long-term.
[2019-11-06] MEDS: Haloperidol Lactate 5 MG/ML SDV IM PRN (17:17)
[2019-11-06] MEDS: Tamsulosin 0.4 MG Cap.ER PO SCH (19:58)
[2019-11-06] MEDS ORDERED: chlordiazePOXIDE 10 MG Cap PO SCH (20:00)
[2019-11-06] MEDS: Enoxaparin 40 MG/0.4 ML Syringe SUBCUT SCH (20:01)
[2019-11-06] MEDS: Haloperidol 1 MG Tab PO PRN (22:08)
[2019-11-07] MEDS: LORazepam 2 MG/ML Syringe IVPUSH PRN (00:07)
[2019-11-07] MEDS: Haloperidol Lactate 5 MG/ML SDV IM PRN (01:18)
[2019-11-07] MEDS: Ibuprofen 200 MG Tab PO PRN ×2 (01:20→19:19)
[2019-11-07] MEDS: Sodium Chloride 0.9% 1,000 ML IV SCH ×2 (03:39→22:23)
[2019-11-07 07:31] LABS: CHLORIDE,CL 100 mEq/L (98-106); SODIUM,NA 134 mEq/L (136-145)
[2019-11-07] MEDS: Folic Acid 1 MG Tab PO SCH (08:39)
[2019-11-07] MEDS: Propranolol 80 MG Cap.ER PO SCH (08:39)
[2019-11-07] MEDS: chlordiazePOXIDE 10 MG Cap PO SCH ×3 (08:39→19:13)
[2019-11-07] MEDS: Nicotine 14 MG/24 Hr Patch TRDERM SCH (08:40)
[2019-11-07] MEDS: Thiamine 200 MG/2 ML MDV IVPUSH SCH (08:42)
[2019-11-07] MEDS: Potassium Chloride 10 MEQ Tab.ER PO SCH ×2 (08:55→16:36)
--- NOTE | 2019-11-07 13:55 | PCM.PN ---
- General Info Date of Service: 11/07/19 Admission Dx/Problem (Free Text): Rhabdomylosis Alcohol Abuse Vulnerable Adult Frequent Falls Functional Status: Reports: Pain Controlled, Tolerating Diet, Ambulating - Review of Systems General: Reports: Weakness, Fatigue, Malaise HEENT: Reports: No Symptoms Pulmonary: Denies: Shortness of Breath, Cough Cardiovascular: Denies: Chest Pain, Edema, Lightheadedness Gastrointestinal: Denies: Abdominal Pain, Nausea, Vomiting Genitourinary: Reports: No Symptoms Musculoskeletal: Reports: Back Pain Skin: Reports: Bruising Neurological: Reports: Weakness - Patient Data Vitals - Most Recent: Last Vital Signs Temp 96.5 F L 11/07/19 12:00 Pulse 72 11/07/19 12:00 Resp 20 11/07/19 12:00 BP 123/78 11/07/19 12:00 Pulse Ox 96 11/07/19 12:00 Weight - Most Recent: 137 lb 9.6 oz I&O - Last 24 Hours: Intake & Output 11/06/19 11/07/19 11/07/19 22:59 06:59 14:59 Intake Total 1000 Balance 1000 Lab Results Last 24 Hours: Laboratory Results - last 24 hr 11/07/19 11/07/19 Range/Units 06:55 07:00 Sodium 134 L (136-145) mEq/L Potassium 2.9 L* (3.5-5.0) mEq/L Chloride 100 (98-106) mEq/L Carbon Dioxide 25 (21-32) mmol/L BUN 7 (7-18) mg/dL Creatinine 0.6 L (0.7-1.3) mg/dL Est Cr Clr Drug Dosing 108.36 mL/min Estimated GFR (MDRD) > 60 (>=60) mL/min Glucose 86 (75-99) mg/dL Calcium 8.4 (8.4-10.1) mg/dL Magnesium 1.8 (1.8-2.4) mg/dL Total Bilirubin 1.3 H (0.0-1.0) mg/dL AST 122 H (15-37) U/L ALT 96 H (12-78) U/L Alkaline Phosphatase 81 (46-116) U/L Creatine Kinase 548 H (35-232) U/L Total Protein 6.6 (6.4-8.2) g/dL Albumin 3.0 L (3.4-5.0) g/dL Med Orders - Current: Current Medications Chlordiazepoxide HCl (Librium) 20 mg PO TID REPLACED BY [facility] Last Admin: 11/07/19 08:39 Dose: 20 mg Documented by: Diazepam (Valium.) 5 mg PO TID PRN PRN Reason: Withdrawal Symptoms Last Admin: 11/06/19 15:27 Dose: 5 mg Documented by: Enoxaparin Sodium (Lovenox) 40 mg SUBCUT Q24H REPLACED BY [facility] Last Admin: 11/06/19 20:01 Dose: 40 mg Documented by: Folic Acid (Folic Acid) 1 mg PO DAILY REPLACED BY [facility] Last Admin: 11/07/19 08:39 Dose: 1 mg Documented by: Haloperidol (Haldol) 1 mg PO Q1H PRN PRN Reason: Agitation Last Admin: 11/06/19 22:08 Dose: 1 mg Documented by: Haloperidol Lactate (Haldol) 1 mg IM Q1H PRN PRN Reason: Agitation Last Admin: 11/07/19 01:18 Dose: 1 mg Documented by: Sodium Chloride (Normal Saline) 1,000 mls @ 50 mls/hr IV ASDIRECTED REPLACED BY [facility] Last Admin: 11/07/19 03:39 Dose: 125 mls/hr Documented by: Ibuprofen (Motrin) 600 mg PO Q6H PRN PRN Reason: Pain/Fever Last Admin: 11/07/19 01:20 Dose: 600 mg Documented by: Lorazepam (Ativan) 1 mg IVPUSH Q2H PRN PRN Reason: Withdrawal Symptoms Last Admin: 11/07/19 00:07 Dose: 1 mg Documented by: Nicotine (Habitrol) 14 mg TRDERM DAILY REPLACED BY [facility] Last Admin: 11/07/19 08:40 Dose: 14 mg Documented by: Ondansetron HCl (Zofran) 4 mg IV Q6H PRN PRN Reason: Nausea/Vomiting Polyethylene Glycol (Miralax) 17 gm PO DAILY PRN PRN Reason: Constipation Last Admin: 11/05/19 07:52 Dose: 17 gm Documented by: Potassium Chloride (Klor-Con 10) 20 meq PO BIDMEALS REPLACED BY [facility] Last Admin: 11/07/19 08:55 Dose: 20 meq Documented by: Propranolol HCl (Inderal La) 80 mg PO DAILY REPLACED BY [facility] Last Admin: 11/07/19 08:39 Dose: 80 mg Documented by: Tamsulosin HCl (Flomax) 0.4 mg PO BEDTIME REPLACED BY [facility] Last Admin: 11/06/19 19:58 Dose: 0.4 mg Documented by: Thiamine HCl (Vitamin B-1) 100 mg IVPUSH DAILY REPLACED BY [facility] Last Admin: 11/07/19 08:42 Dose: 100 mg Documented by: Discontinued Medications Chlordiazepoxide HCl (Librium) 10 mg PO BID PRN PRN Reason: Withdrawal Symptoms Chlordiazepoxide HCl (Librium) 10 mg PO BID REPLACED BY [facility] Last Admin: 11/06/19 07:41 Dose: 10 mg Documented by: Chlordiazepoxide HCl (Librium) 25 mg PO BID REPLACED BY [facility] Multivitamins/Minerals 10 ml/Folic Acid 1 mg/ Thiamine HCl 100 mg/ Magnesium Sulfate 2 gm / Sodium Chloride 1,015.2 mls @ 500 mls/hr IV ONETIME ONE Stop: 11/04/19 21:51 Last Admin: 11/04/19 20:07 Dose: 500 mls/hr Documented by: - Exam General: Alert, Oriented (person and place) HEENT: Mucous Membr. Moist/[place] Neck: Supple Lungs: Clear to Auscultation, Normal Respiratory Effort Cardiovascular: Regular Rate, Regular Rhythm GI/Abdominal Exam: Normal Bowel Sounds, Soft, Non-Tender Extremities: No Pedal Edema Skin: Warm, Dry Wound/Incisions: Other (multiple skin tags, bruises and scabs noted on arms. Significant healing bruising noted on back. ) Neurological: No New Focal Deficit Sepsis Event Note - Evaluation Sepsis Screening Result: No Definite Risk - Focused Exam Vital Signs: Vital Signs Temp Pulse Resp BP Pulse Ox 11/07/19 12:00 96.5 F L 72 20 123/78 96 11/07/19 08:00 96.7 F L 91 18 113/72 97 11/07/19 04:00 97.1 F 89 18 102/63 96 - Problem List & Annotations (1) Rhabdomyolysis SNOMED Code(s): 996769913 Code(s): M62.82 - RHABDOMYOLYSIS Status: Acute Priority: High Qualifiers: Rhabdomyolysis type: non-traumatic Qualified Code(s): M62.82 - Rhabdomyolysis (2) Alcohol abuse SNOMED Code(s): 29146830 Code(s): F10.10 - ALCOHOL ABUSE, UNCOMPLICATED Status: Acute Priority: High (3) Frequent falls SNOMED Code(s): 211134280 Code(s): R29.6 - REPEATED FALLS Status: Acute Priority: High (4) Dehydration SNOMED Code(s): 94527600 Code(s): E86.0 - DEHYDRATION Status: Acute Priority: High - Problem List Review Problem List Initiated/Reviewed/Updated: Yes - My Orders Last 24 Hours: My Active Orders 11/06/19 14:00 chlordiazePOXIDE [Librium] 20 mg PO TID 11/06/19 16:09 Haloperidol Lactate [Haldol] 1 mg IM Q1H PRN haloperidoL [Haldol] 1 mg PO Q1H PRN 11/07/19 08:13 Potassium Chloride [Klor-Con 10] 20 meq PO BIDMEALS - Assessment Assessment:: Rhabdomylosis Frequent Falls Alcohol Abuse Vulnerable Adult - Plan Plan:: Patient appears to be much more relaxed and cooperative this morning. Nursing staff was kind enough to bathe him and dress his multiple superficial skin tears yesterday evening. He has not been able to care for himself for some time now. He does c/o headache this morning. Will add ibuprofen as needed. Na improved from 131 to 136. Creatinine Kinase improved from 3143 to 2199. Will continue IVF until tomorrow. Repeat labs in am. No current withdrawal symptoms. Given elevated ETOH level to 272, anticipate the next 24-48 hours patient will likely experience withdrawal symptoms. Will continue with every 4 hr CIWA assessments and increase to every 2 hours when patient starts experiencing withdrawal symptoms. Patient started on Librium BID, folic acid 1 mg daily, thiamine 100 mg daily. Will increase Librium to 20 mg BID if withdrawal symptoms start. Discussed case with Dr. Schafer, who is agreeable with plan. Consult case management for discharge planning. Potential d/c to [facility] Sunday or Sunday, pending withdrawal symptoms. Patient verbalized understanding and is agreeable with this plan. 11-06-19 Patient restless this am but cooperative. Was hallucinating last evening, was persistent about a black coat on the floor that needed to be picked up. This am, asks if the black coat was taken care of. Reoriented the patient. Denies headache today. Does have achy arms, shoulders and backs. Multiple skin tears, scabbing and bruising noted on arms. Significant bruising noted to back. Does require one nurse today for transfers, still weak. CK has much improved from 3143 on admit to 891 today. Sodium now at 133. Potassium normal. blood pressure is normal. Due to hallucinations, will increase his Librium to 20 mg TID. Recheck labs in am. guest services director to plan for discharge to correction. 11-07-2019 Patient calm and cooperative this am. Did have issues with increased restlessness, trying to climb out of bed, wanting to leave yesterday afternoon so Haldol was started and did provide some relief. Continues to complain of pain in his arms, shoulders, and back. Rates at an 8/10. Bruising on back is i mproving. Multiple scabs are noted to arms. CK continues to improve, down to 548. Potassium is low at 2.9. Magnesium is normal. Will start potassium supplementation today, recheck levels in am. Continue with PT. Possible transfer to swing bed tomorrow if labs normalize and needs further therapy. Awaiting correction placement.
[2019-11-07] MEDS: Tamsulosin 0.4 MG Cap.ER PO SCH (19:13)
[2019-11-07] MEDS: Enoxaparin 40 MG/0.4 ML Syringe SUBCUT SCH (20:40)
[2019-11-07] MEDS: Haloperidol 1 MG Tab PO PRN (22:21)
[2019-11-08] MEDS: Nicotine 14 MG/24 Hr Patch TRDERM SCH (07:34)
[2019-11-08] MEDS: Folic Acid 1 MG Tab PO SCH (07:35)
[2019-11-08] MEDS: chlordiazePOXIDE 10 MG Cap PO SCH (07:35)
[2019-11-08] MEDS: Potassium Chloride 10 MEQ Tab.ER PO SCH (07:35)
[2019-11-08] MEDS: Propranolol 80 MG Cap.ER PO SCH (07:36)
[2019-11-08] MEDS: Thiamine 200 MG/2 ML MDV IVPUSH SCH (07:36)
[2019-11-08 08:04] LABS: CHLORIDE,CL 103 mEq/L (98-106); SODIUM,NA 135 mEq/L (136-145)
[2019-11-08] MEDS ORDERED: traMADol 50 MG Tab PO PRN (10:35)
--- NOTE | 2019-11-08 10:44 | PCM.DCSUM1 ---
Discharge Summary - Hospital Course HPI Initial Comments: This patient was admitted for alcohol detox, hyponatremia, and senior living placement. This patient is in the process of home eviction, he was admitted confused, disoriented, and hallucinating. Patient has known history of alcoholism. The patient today reports that he has no complaints other than chronic back and neck pain. He reports that otherwise he feels pretty good today. The patient denies bell, dizziness, n, v, d, f, chest pain, shortness of breath. He does not have any current tremors or neurological deficits. He is alert and oriented. The patients labs today are much improved. The goal for this patient is to be admitted to the senior living once he has detox. account services associate saw this patient Sunday and report that on Sunday he will be able to be evaluated for senior living placement. I will continue patient admit and have renal social worker see this patient on Sunday for senior living placement. The patient will be swing today, as he is stable enough to do so. - Discharge Data Discharge Date: 11/08/19 Discharge Disposition: DC/Tfer W/I Hosp To Swing 61 Condition: Fair - Referral to Home Health Primary Care Physician: Gustavo Schafer MD - Patient Summary/Data Consults: Consultations 11/04/19 20:50 PT Evaluation and Treatment [CONS] Routine 11/05/19 12:19 Consult to Case Management/Battery Container Inspector [CONS] Routine - Discharge Plan *PRESCRIPTION DRUG MONITORING PROGRAM REVIEWED*: Not Applicable *COPY OF PRESCRIPTION DRUG MONITORING REPORT IN PATIENT MALENA: Not Applicable Home Medications: Home Meds Propranolol HCl [Inderal Xl] 80 mg PO DAILY 11/04/19 [History] Tamsulosin [Flomax] 0.4 mg PO DAILY 11/04/19 [History] traMADol HCl [Tramadol HCl] 50 mg PO Q8HR PRN 11/04/19 [History] Forms: ED Department Discharge Referrals: PCP,None [Ordering Only Provider] - - Discharge Summary/Plan Comment DC Time >30 min.: No - General Info Date of Service: 11/08/19 Functional Status: Reports: Pain Controlled (chronic back and neck pain), Tolerating Diet, Ambulating (with assistance), Urinating - Review of Systems General: Reports: No Symptoms HEENT: Reports: No Symptoms Pulmonary: Reports: No Symptoms Cardiovascular: Reports: No Symptoms Gastrointestinal: Reports: No Symptoms. Denies: Abdominal Pain, Nausea, Vomiting Genitourinary: Reports: No Symptoms Musculoskeletal: Reports: Neck Pain, Back Pain Skin: Reports: No Symptoms Neurological: Reports: No Symptoms. Denies: Confusion, Dizziness, Headache, Numbness, Seizure, Syncope, Tingling, Tremors, Trouble Speaking, Difficulty Walking, Weakness, Change in Speech, Gait Disturbance Psychiatric: Reports: No Symptoms. Denies: Confusion - Patient Data Vitals - Most Recent: Last Vital Signs Temp 96.6 F L 11/08/19 07:33 Pulse 79 11/08/19 07:33 Resp 18 11/08/19 07:33 BP 144/82 H 11/08/19 07:33 Pulse Ox 96 11/08/19 07:33 Weight - Most Recent: 137 lb 9.6 oz Lab Results - Last 24 hrs: Laboratory Results - last 24 hr 11/08/19 11/08/19 Range/Units 05:00 05:11 WBC 4.7 L (5.0-10.0) 10^3/uL RBC 3.25 L (4.50-6.00) 10^6/uL Hgb 11.8 L (14.0-18.0) g/dL Hct 34.0 L (40.0-54.0) % MCV 104.6 H (82.0-94.0) fL MCH 36.3 H (27.0-32.0) pg MCHC 34.7 (33.0-38.0) g/dL RDW Coeff of Ronnie 12.9 (11.0-15.0) % Plt Count 136 L (150-400) 10^3/uL MPV 9.7 fL Sodium 135 L (136-145) mEq/L Potassium 3.6 D (3.5-5.0) mEq/L Chloride 103 (98-106) mEq/L Carbon Dioxide 24 (21-32) mmol/L BUN 5 L (7-18) mg/dL Creatinine 0.5 L (0.7-1.3) mg/dL Est Cr Clr Drug Dosing 130.03 mL/min Estimated GFR (MDRD) > 60 (>=60) mL/min Glucose 86 (75-99) mg/dL Calcium 8.3 L (8.4-10.1) mg/dL Total Bilirubin 0.9 (0.0-1.0) mg/dL AST 68 H (15-37) U/L ALT 76 (12-78) U/L Alkaline Phosphatase 80 (46-116) U/L Creatine Kinase 192 (35-232) U/L Total Protein 6.5 (6.4-8.2) g/dL Albumin 2.8 L (3.4-5.0) g/dL Med Orders - Current: Current Medications Chlordiazepoxide HCl (Librium) 20 mg PO TID [facility] Last Admin: 11/08/19 07:35 Dose: 20 mg Documented by: Diazepam (Valium.) 5 mg PO TID PRN PRN Reason: Withdrawal Symptoms Last Admin: 11/06/19 15:27 Dose: 5 mg Documented by: Enoxaparin Sodium (Lovenox) 40 mg SUBCUT Q24H [facility] Last Admin: 11/07/19 20:40 Dose: 40 mg Documented by: Folic Acid (Folic Acid) 1 mg PO DAILY [facility] Last Admin: 11/08/19 07:35 Dose: 1 mg Documented by: Haloperidol (Haldol) 1 mg PO Q1H PRN PRN Reason: Agitation Last Admin: 11/07/19 22:21 Dose: 1 mg Documented by: Haloperidol Lactate (Haldol) 1 mg IM Q1H PRN PRN Reason: Agitation Last Admin: 11/07/19 01:18 Dose: 1 mg Documented by: Sodium Chloride (Normal Saline) 1,000 mls @ 50 mls/hr IV ASDIRECTED [facility] Last Admin: 11/07/19 22:23 Dose: 125 mls/hr Documented by: Ibuprofen (Motrin) 600 mg PO Q6H PRN PRN Reason: Pain/Fever Last Admin: 11/07/19 19:19 Dose: 600 mg Documented by: Lorazepam (Ativan) 1 mg IVPUSH Q2H PRN PRN Reason: Withdrawal Symptoms Last Admin: 11/07/19 00:07 Dose: 1 mg Documented by: Nicotine (Habitrol) 14 mg TRDERM DAILY [facility] Last Admin: 11/08/19 07:34 Dose: 14 mg Documented by: Non-Formulary Medication (Propranolol Hcl [Inderal Xl]) 80 mg PO DAILY [facility] Ondansetron HCl (Zofran) 4 mg IV Q6H PRN PRN Reason: Nausea/Vomiting Polyethylene Glycol (Miralax) 17 gm PO DAILY PRN PRN Reason: Constipation Last Admin: 11/05/19 07:52 Dose: 17 gm Documented by: Potassium Chloride (Klor-Con 10) 20 meq PO BIDMEALS [facility] Last Admin: 11/08/19 07:35 Dose: 20 meq Documented by: Propranolol HCl (Inderal La) 80 mg PO DAILY [facility] Last Admin: 11/08/19 07:36 Dose: 80 mg Documented by: Tamsulosin HCl (Flomax) 0.4 mg PO BEDTIME [facility] Last Admin: 11/07/19 19:13 Dose: 0.4 mg Documented by: Tamsulosin HCl (Flomax) 0.4 mg PO DAILY [facility] Thiamine HCl (Vitamin B-1) 100 mg IVPUSH DAILY [facility] Last Admin: 11/08/19 07:36 Dose: 100 mg Documented by: Tramadol HCl (Ultram) 50 mg PO Q8HR PRN PRN Reason: Pain Discontinued Medications Chlordiazepoxide HCl (Librium) 10 mg PO BID PRN PRN Reason: Withdrawal Symptoms Chlordiazepoxide HCl (Librium) 10 mg PO BID [facility] Last Admin: 11/06/19 07:41 Dose: 10 mg Documented by: Chlordiazepoxide HCl (Librium) 25 mg PO BID [facility] Multivitamins/Minerals 10 ml/Folic Acid 1 mg/ Thiamine HCl 100 mg/ Magnesium Sulfate 2 gm / Sodium Chloride 1,015.2 mls @ 500 mls/hr IV ONETIME ONE Stop: 11/04/19 21:51 Last Admin: 11/04/19 20:07 Dose: 500 mls/hr Documented by: - Exam General: Reports: Alert, Oriented, Cooperative, No Acute Distress HEENT: Reports: Pupils Equal, Pupils Reactive, EOMI, Mucous Membr. Moist/[place] Neck: Reports: Supple, Trachea Midline, No JVD Lungs: Reports: Clear to Auscultation, Normal Respiratory Effort Cardiovascular: Reports: Regular Rate, Regular Rhythm Back Exam: Reports: Normal Inspection, Full Range of Motion. Denies: CVA Tenderness (L), CVA Tenderness (R) Extremities: Normal Inspection, Normal Range of Motion, Non-Tender, No Pedal Edema, Normal Capillary Refill Skin: Reports: Warm, Dry, Ecchymosis (upper, mid, lower back bilaterally old. bilateral upper arms and bilateral lower legs old and healing from multiple falls at home from wheelchair due to ETOH hx.), Other (multiple abrasion BLE anterior and BLE arms.) Neurological: Reports: No New Focal Deficit, Normal Gait, Normal Speech, Strength Equal Bilateral, Sensation Intact, Cranial Nerves Intact Psy/Mental Status: Reports: Alert, Normal Affect, Normal Mood
[2019-11-09] MEDS ORDERED: Tamsulosin 0.4 MG Cap.ER PO SCH (08:00)
[2019-11-09] MEDS ORDERED: PROPRANOLOL HCL 80 MG PO SCH (08:00)
== END 2019-11-08 11:30 | disposition swing bed (61) | DRG 558 ==
LOC: CC.ED 19:13 → CC.MS 20:19 → UNDOADMIN 20:19 → CC.MS 20:20
PROVIDERS: ADMIT Nurse Practitioner Family; ATTEND Family Medicine
DX: R53.1 Weakness (principal); F10.10 Alcohol abuse, uncomplicated; M62.82 Rhabdomyolysis; F10.239 Alcohol dependence with withdrawal, unspecified; Y90.7 Blood alcohol level of 200-239 mg/100 ml; F17.200 Nicotine dependence, unspecified, uncomplicated; E87.1 Hypo-osmolality and hyponatremia; G89.29 Other chronic pain; M54.9 Dorsalgia, unspecified; M54.2 Cervicalgia; R29.6 Repeated falls; F17.210 Nicotine dependence, cigarettes, uncomplicated; Y90.8 Blood alcohol level of 240 mg/100 ml or more; E86.0 Dehydration; Z79.899 Other long term (current) drug therapy
CPT/HCPCS: 36415; 80048; 80053; 80305-QW; 80307; 81001; 82550; 83615; 83735; 84484; 85025; 85027; 85610; 86140; 93005; 96374; 97110-GP; 97161-GP; 97530-GP; 99285-25; A9270-GY; J1630; J1650; J2060; J3411; J3475; J3490; J7030

== ENCOUNTER 2019-11-08 10:34 | Inpatient (IN) | payer MEDICARE, MEDICAID ==
[2019-11-08] MEDS ORDERED: Ondansetron 4 MG/2 ML SDV IV PRN (15:47)
[2019-11-08] MEDS ORDERED: Diazepam 5 MG Tab PO PRN (15:51)
[2019-11-08] MEDS ORDERED: Haloperidol 1 MG Tab PO PRN (15:52)
[2019-11-08] MEDS ORDERED: Haloperidol Lactate 5 MG/ML SDV IM PRN (15:52)
[2019-11-08] MEDS ORDERED: LORazepam 2 MG/ML Syringe IVPUSH PRN (15:53)
[2019-11-08] MEDS ORDERED: Sodium Chloride 0.9% 1,000 ML IV SCH (16:00)
[2019-11-08] MEDS: traMADol 50 MG Tab PO PRN (17:17)
[2019-11-08] MEDS: Potassium Chloride 10 MEQ Tab.ER PO SCH (17:18)
[2019-11-08] MEDS: Tamsulosin 0.4 MG Cap.ER PO SCH (19:40)
[2019-11-08] MEDS: chlordiazePOXIDE 10 MG Cap PO SCH (19:40)
[2019-11-08] MEDS: Enoxaparin 40 MG/0.4 ML Syringe SUBCUT SCH (22:19)
[2019-11-09] MEDS: Nicotine 14 MG/24 Hr Patch TRDERM SCH ×2 (07:42→19:58)
[2019-11-09] MEDS: Potassium Chloride 10 MEQ Tab.ER PO SCH ×2 (07:44→17:02)
[2019-11-09] MEDS: Propranolol 80 MG Cap.ER PO SCH (07:44)
[2019-11-09] MEDS: Folic Acid 1 MG Tab PO SCH (07:44)
[2019-11-09] MEDS: chlordiazePOXIDE 10 MG Cap PO SCH ×3 (07:44→19:54)
[2019-11-09] MEDS ORDERED: Thiamine 100 MG in Sodium Chloride 0.9% 100 ML IV SCH (08:00)
[2019-11-09] MEDS: traMADol 50 MG Tab PO PRN ×2 (13:34→23:20)
[2019-11-09] MEDS: Tamsulosin 0.4 MG Cap.ER PO SCH (19:54)
[2019-11-09] MEDS: Thiamine 100 MG Tab PO SCH (19:55)
[2019-11-09] MEDS: Enoxaparin 40 MG/0.4 ML Syringe SUBCUT SCH (20:02)
[2019-11-10] MEDS: Nicotine 14 MG/24 Hr Patch TRDERM SCH (08:08)
[2019-11-10] MEDS: Propranolol 80 MG Cap.ER PO SCH (08:08)
[2019-11-10] MEDS: Potassium Chloride 10 MEQ Tab.ER PO SCH ×2 (08:09→16:56)
[2019-11-10] MEDS: Folic Acid 1 MG Tab PO SCH (08:09)
[2019-11-10] MEDS: chlordiazePOXIDE 10 MG Cap PO SCH ×3 (08:09→19:10)
[2019-11-10 08:22] LABS: CHLORIDE,CL 104 mEq/L (98-106); SODIUM,NA 137 mEq/L (136-145)
[2019-11-10] MEDS: traMADol 50 MG Tab PO PRN ×2 (15:22→19:10)
[2019-11-10] MEDS: Tamsulosin 0.4 MG Cap.ER PO SCH (19:10)
[2019-11-10] MEDS: Thiamine 100 MG Tab PO SCH (20:07)
[2019-11-10] MEDS: Enoxaparin 40 MG/0.4 ML Syringe SUBCUT SCH (20:08)
[2019-11-11] MEDS: Propranolol 80 MG Cap.ER PO SCH (08:00)
[2019-11-11] MEDS: Folic Acid 1 MG Tab PO SCH (08:00)
[2019-11-11] MEDS: Potassium Chloride 10 MEQ Tab.ER PO SCH ×2 (08:01→16:45)
[2019-11-11] MEDS: chlordiazePOXIDE 10 MG Cap PO SCH ×3 (08:01→19:15)
[2019-11-11] MEDS: Nicotine 14 MG/24 Hr Patch TRDERM SCH (08:01)
[2019-11-11] MEDS: Polyethylene Glycol 3350 Powder 17 GM Packet PO PRN (13:43)
[2019-11-11] MEDS: traMADol 50 MG Tab PO PRN (16:46)
[2019-11-11] MEDS: Tamsulosin 0.4 MG Cap.ER PO SCH (19:15)
[2019-11-11] MEDS: Thiamine 100 MG Tab PO SCH (19:15)
[2019-11-11] MEDS: Enoxaparin 40 MG/0.4 ML Syringe SUBCUT SCH (20:02)
[2019-11-12] MEDS: Polyethylene Glycol 3350 Powder 17 GM Packet PO PRN (07:47)
[2019-11-12] MEDS: Nicotine 14 MG/24 Hr Patch TRDERM SCH (07:47)
[2019-11-12] MEDS: Potassium Chloride 10 MEQ Tab.ER PO SCH ×2 (07:48→17:11)
[2019-11-12] MEDS: chlordiazePOXIDE 10 MG Cap PO SCH ×3 (07:48→19:29)
[2019-11-12] MEDS: Propranolol 80 MG Cap.ER PO SCH (07:48)
[2019-11-12] MEDS: Folic Acid 1 MG Tab PO SCH (07:48)
[2019-11-12] MEDS: traMADol 50 MG Tab PO PRN (14:50)
[2019-11-12] MEDS: Thiamine 100 MG Tab PO SCH (19:29)
[2019-11-12] MEDS: Tamsulosin 0.4 MG Cap.ER PO SCH (19:29)
[2019-11-12] MEDS: Enoxaparin 40 MG/0.4 ML Syringe SUBCUT SCH (22:44)
[2019-11-13] MEDS: traMADol 50 MG Tab PO PRN ×2 (07:09→20:02)
[2019-11-13] MEDS: Potassium Chloride 10 MEQ Tab.ER PO SCH ×2 (07:28→18:03)
[2019-11-13] MEDS: Nicotine 14 MG/24 Hr Patch TRDERM SCH (07:28)
[2019-11-13] MEDS: Folic Acid 1 MG Tab PO SCH (07:28)
[2019-11-13] MEDS: Propranolol 80 MG Cap.ER PO SCH (07:28)
[2019-11-13] MEDS: chlordiazePOXIDE 10 MG Cap PO SCH ×2 (07:28→19:59)
[2019-11-13] MEDS ORDERED: Sodium Chloride 0.9% 1,000 ML IV ONE (09:10)
[2019-11-13] MEDS ORDERED: Flumazenil 0.1 MG/ML 5 ML MDV IVPUSH STA (09:10)
[2019-11-13] MEDS ORDERED: Flumazenil 0.1 MG/ML 5 ML MDV ONE (09:25)
[2019-11-13 11:04] LABS: CHLORIDE,CL 101 mEq/L (98-106); SODIUM,NA 134 mEq/L (136-145)
[2019-11-13] MEDS: levETIRAcetam 500 MG Tab PO SCH ×2 (11:57→20:00)
--- NOTE | 2019-11-13 12:06 | PCM.PN ---
- General Info Date of Service: 11/13/19 Admission Dx/Problem (Free Text): Rhabdomyolysis Alcohol Abuse Frequent Falls Subjective Update: Called to patient's room this am as had acutely become unresponsive with apnea. Had been sitting up eating breakfast at 8, nurse in to room at 9 to put on Abdulkadir Hose when found him unresponsive. Periods of apnea lasting 4-5 seconds. Color pale, diaphoretic. - Patient Data Vitals - Most Recent: Last Vital Signs Temp 99.5 F 11/13/19 07:25 Pulse 87 11/13/19 11:40 Resp 16 11/13/19 11:40 BP 113/64 11/13/19 11:40 Pulse Ox 97 11/13/19 11:40 Weight - Most Recent: 140 lb 11.2 oz Lab Results Last 24 Hours: Laboratory Results - last 24 hr 11/13/19 11/13/19 11/13/19 Range/Units 09:14 10:32 10:33 WBC 8.5 (5.0-10.0) 10^3/uL RBC 3.22 L (4.50-6.00) 10^6/uL Hgb 11.7 L (14.0-18.0) g/dL Hct 35.0 L (40.0-54.0) % MCV 108.7 H (82.0-94.0) fL MCH 36.3 H (27.0-32.0) pg MCHC 33.4 (33.0-38.0) g/dL RDW Coeff of Ronnie 13.1 (11.0-15.0) % Plt Count 407 H (150-400) 10^3/uL Neut % (Auto) 77.8 (35-85) % Lymph % (Auto) 13.5 (10-55) % [place] % (Auto) 8.3 (0-16) % Eos % (Auto) 0.2 (0-5) % Baso % (Auto) 0.2 (0-3) % Neut # (Auto) 6.61 (1.80-7.00) 10^3/uL Lymph # (Auto) 1.15 (1.00-4.80) 10^3/uL [place] # (Auto) 0.71 (0.00-0.80) 10^3/uL Eos # (Auto) 0.02 (0.00-0.45) 10^3/uL Baso # (Auto) 0.02 10^3/uL PT 9.9 (9.7-12.3) SEC INR 0.98 (0.92-1.18) Sodium (136-145) mEq/L Potassium (3.5-5.0) mEq/L Chloride (98-106) mEq/L Carbon Dioxide (21-32) mmol/L BUN (7-18) mg/dL Creatinine (0.7-1.3) mg/dL Est Cr Clr Drug Dosing mL/min Estimated GFR (MDRD) (>=60) mL/min Glucose (75-99) mg/dL POC Glucose 83 (75-105) mg/dl Calcium (8.4-10.1) mg/dL Total Bilirubin (0.0-1.0) mg/dL AST (15-37) U/L ALT (12-78) U/L Alkaline Phosphatase (46-116) U/L Creatine Kinase (35-232) U/L Troponin I (0.00-0.06) ng/mL Total Protein (6.4-8.2) g/dL Albumin (3.4-5.0) g/dL 11/13/19 Range/Units 10:33 WBC (5.0-10.0) 10^3/uL RBC (4.50-6.00) 10^6/uL Hgb (14.0-18.0) g/dL Hct (40.0-54.0) % MCV (82.0-94.0) fL MCH (27.0-32.0) pg MCHC (33.0-38.0) g/dL RDW Coeff of Ronnie (11.0-15.0) % Plt Count (150-400) 10^3/uL Neut % (Auto) (35-85) % Lymph % (Auto) (10-55) % [place] % (Auto) (0-16) % Eos % (Auto) (0-5) % Baso % (Auto) (0-3) % Neut # (Auto) (1.80-7.00) 10^3/uL Lymph # (Auto) (1.00-4.80) 10^3/uL [place] # (Auto) (0.00-0.80) 10^3/uL Eos # (Auto) (0.00-0.45) 10^3/uL Baso # (Auto) 10^3/uL PT (9.7-12.3) SEC INR (0.92-1.18) Sodium 134 L (136-145) mEq/L Potassium 4.8 D (3.5-5.0) mEq/L Chloride 101 (98-106) mEq/L Carbon Dioxide 25 (21-32) mmol/L BUN 5 L (7-18) mg/dL Creatinine 0.8 D (0.7-1.3) mg/dL Est Cr Clr Drug Dosing 83.10 mL/min Estimated GFR (MDRD) > 60 (>=60) mL/min Glucose 160 H D (75-99) mg/dL POC Glucose (75-105) mg/dl Calcium 8.6 (8.4-10.1) mg/dL Total Bilirubin 0.3 (0.0-1.0) mg/dL AST 22 (15-37) U/L ALT 37 (12-78) U/L Alkaline Phosphatase 79 (46-116) U/L Creatine Kinase 38 (35-232) U/L Troponin I < 0.017 (0.00-0.06) ng/mL Total Protein 6.9 (6.4-8.2) g/dL Albumin 3.0 L (3.4-5.0) g/dL Med Orders - Current: Current Medications Chlordiazepoxide HCl (Librium) 10 mg PO BID [facility] Folic Acid (Folic Acid) 1 mg PO DAILY [facility] Last Admin: 11/13/19 07:28 Dose: 1 mg Documented by: Levetiracetam (Keppra) 500 mg PO BID [facility] Lorazepam (Ativan) 2 mg IVPUSH Q2H PRN PRN Reason: Anxiety Nicotine (Habitrol) 14 mg TRDERM DAILY [facility] Last Admin: 11/13/19 07:28 Dose: 14 mg Documented by: Ondansetron HCl (Zofran) 4 mg IV Q6H PRN PRN Reason: Nausea/Vomiting Polyethylene Glycol (Miralax) 17 gm PO DAILY PRN PRN Reason: Constipation Last Admin: 11/12/19 07:47 Dose: 17 gm Documented by: Potassium Chloride (Klor-Con 10) 20 meq PO BIDMEALS [facility] Last Admin: 11/13/19 07:28 Dose: 20 meq Documented by: Propranolol HCl (Inderal La) 80 mg PO DAILY [facility] Last Admin: 11/13/19 07:28 Dose: 80 mg Documented by: Tamsulosin HCl (Flomax) 0.4 mg PO BEDTIME [facility] Last Admin: 11/12/19 19:29 Dose: 0.4 mg Documented by: Thiamine HCl (Vitamin B-1) 100 mg PO BEDTIME [facility] Last Admin: 11/12/19 19:29 Dose: 100 mg Documented by: Tramadol HCl (Ultram) 50 mg PO Q8H PRN PRN Reason: Pain Last Admin: 11/13/19 07:09 Dose: 50 mg Documented by: Discontinued Medications Chlordiazepoxide HCl (Librium) 20 mg PO TID [facility] Last Admin: 11/13/19 07:28 Dose: 20 mg Documented by: Diazepam (Valium.) 5 mg PO TID PRN PRN Reason: Agitation Enoxaparin Sodium (Lovenox) 40 mg SUBCUT Q24H [facility] Last Admin: 11/12/19 22:44 Dose: 40 mg Documented by: Flumazenil (Romazicon) Confirm Administered Dose 0.5 mg .ROUTE .STK-MED ONE Stop: 11/13/19 09:26 Last Admin: 11/13/19 11:13 Dose: Not Given Documented by: Flumazenil (Romazicon) 0.4 mg IVPUSH STAT STA Stop: 11/13/19 09:11 Last Admin: 11/13/19 09:10 Dose: 0.4 mg Documented by: Haloperidol (Haldol) 1 mg PO Q1H PRN PRN Reason: Hallucinations Haloperidol Lactate (Haldol) 1 mg IM Q1H PRN PRN Reason: Hallucinations Sodium Chloride (Normal Saline) 1,000 mls @ 50 mls/hr IV ASDIRECTED NIMESH Stop: 11/09/19 12:00 Last Admin: 11/08/19 22:20 Dose: 50 mls/hr Documented by: Thiamine HCl 100 mg/ Sodium (Chloride) 101 mls @ 202 mls/hr IV DAILY [facility] Last Admin: 11/09/19 13:20 Dose: Not Given Documented by: Sodium Chloride (Normal Saline) 1,000 mls @ 999 mls/hr IV ONETIME ONE Stop: 11/13/19 10:10 Last Admin: 11/13/19 09:10 Dose: 999 mls/hr Documented by: Levetiracetam (Keppra) 500 mg PO BID [facility] - Exam General: Obtunded HEENT: Pupils Equal, Other Lungs: Clear to Auscultation Cardiovascular: Regular Rate, Regular Rhythm Sepsis Event Note - Evaluation Sepsis Screening Result: No Definite Risk - Focused Exam Vital Signs: Vital Signs Temp Pulse Resp BP Pulse Ox 11/13/19 11:40 87 16 113/64 97 11/13/19 11:00 90 18 103/64 11/13/19 10:45 88 15 115/65 11/13/19 10:30 109/61 11/13/19 10:20 90 19 115/73 11/13/19 10:01 103/61 11/13/19 09:49 94 144/90 H 93 L 11/13/19 09:25 98 12 100/54 L 11/13/19 09:19 92 76/49 L 11/13/19 07:25 99.5 F 99 18 134/78 94 L - Problem List & Annotations (1) Episode of unresponsiveness SNOMED Code(s): 919424723 Code(s): R41.89 - OTH SYMPTOMS AND SIGNS W COGNITIVE FUNCTIONS AND AWARENESS Status: Acute Priority: High Current Visit: Yes (2) Alcohol abuse SNOMED Code(s): 81893999 Code(s): F10.10 - ALCOHOL ABUSE, UNCOMPLICATED Status: Acute Priority: High Current Visit: Yes (3) Rhabdomyolysis SNOMED Code(s): 396226423 Code(s): M62.82 - RHABDOMYOLYSIS Status: Acute Priority: High Current Visit: Yes Qualifiers: - Problem List Review Problem List Initiated/Reviewed/Updated: Yes - My Orders Last 24 Hours: My Active Orders 11/13/19 09:25 Head wo Cont [CT] Stat 11/13/19 11:34 levETIRAcetam [Keppra] 500 mg PO BID 11/13/19 16:00 Head wo Cont [CT] Timed 11/13/19 20:00 chlordiazePOXIDE [Librium] 10 mg PO BID - Assessment Assessment:: Unresponsive episode History of rhabdomyolysis History of alcohol abuse - Plan Plan:: 905- Patient initially unresponsive on arrival to room with periods of apnea. No response to sternal rub. Blood pressure low. Currently on Librium 20 mg TID, has not had any hallucinations for 5 days. Has been ambulating with PT, does have history of ataxia. Romazicon given per nurse after IV initiated. IV NS fluid bolus given. Obtunded. Oxygen sats drop to mid 80s during periods of apnea. After approximately 20 minutes, patient did open eyes. Had considerable lateral gaze. Moaning. Blood pressure increasing. No further periods of apnea. No seizure activity had been witnessed this am. Patient had not complained of chest pain or shortness of breath. No edema noted. Lung sounds are clear. Weakness noted on the right side, positive pronator drift. Slowly over time, patient recovering. Speech still remains slurred at times but follows all command. No lateral gaze. Moving all extremities. NIH scale improved from 11 to [address] scan of head was done. Is positive for subacute to chronic subdural hematoma. Lovenox stopped. 1100- patient is alert, responding mostly appropriately. Speech inappropriate at times. Moving all extremities. Vital signs are good. Contacted Dr. Bojorquez, neurosurgeon at [facility] in regards to symptoms, CT scan. Advised may be due to seizure activity related to chronic alcohol abuse and withdrawals. Questioned possible cardiac source but EKG, troponin are negative at this time. Labs are all stable. Recommended to hold off on any anticoagulation products as does feel speech deficit could still be related to seizure or bleed. Repeat CT at 1600 today. Start Keppra 500 mg BID for 30 days. Monitor closely. Report given to Felicia Azul as provider control systems specialist and will receive CT report this afternoon.
[2019-11-13] MEDS: Tamsulosin 0.4 MG Cap.ER PO SCH (20:00)
[2019-11-13] MEDS: Thiamine 100 MG Tab PO SCH (20:00)
[2019-11-13] MEDS ORDERED: levETIRAcetam 500 MG Tab PO SCH (20:00)
[2019-11-14] MEDS: Propranolol 80 MG Cap.ER PO SCH (07:45)
[2019-11-14] MEDS: chlordiazePOXIDE 10 MG Cap PO SCH ×2 (07:45→19:35)
[2019-11-14] MEDS: Potassium Chloride 10 MEQ Tab.ER PO SCH ×2 (07:45→16:59)
[2019-11-14] MEDS: Folic Acid 1 MG Tab PO SCH (07:45)
[2019-11-14] MEDS: Nicotine 14 MG/24 Hr Patch TRDERM SCH (07:46)
[2019-11-14] MEDS: levETIRAcetam 500 MG Tab PO SCH ×2 (07:46→19:35)
[2019-11-14] MEDS: Polyethylene Glycol 3350 Powder 17 GM Packet PO PRN (16:59)
[2019-11-14] MEDS: Thiamine 100 MG Tab PO SCH (19:34)
[2019-11-14] MEDS: Tamsulosin 0.4 MG Cap.ER PO SCH (19:35)
[2019-11-15] MEDS: Potassium Chloride 10 MEQ Tab.ER PO SCH ×2 (07:33→17:20)
[2019-11-15] MEDS: Nicotine 14 MG/24 Hr Patch TRDERM SCH (07:33)
[2019-11-15] MEDS: Propranolol 80 MG Cap.ER PO SCH (07:33)
[2019-11-15] MEDS: levETIRAcetam 500 MG Tab PO SCH ×2 (07:34→19:39)
[2019-11-15] MEDS: Folic Acid 1 MG Tab PO SCH (07:34)
[2019-11-15] MEDS: chlordiazePOXIDE 10 MG Cap PO SCH ×2 (07:34→19:38)
[2019-11-15] MEDS: Tamsulosin 0.4 MG Cap.ER PO SCH (19:38)
[2019-11-15] MEDS: Thiamine 100 MG Tab PO SCH (19:38)
[2019-11-16] MEDS: traMADol 50 MG Tab PO PRN ×2 (06:09→16:54)
[2019-11-16] MEDS: Folic Acid 1 MG Tab PO SCH (07:52)
[2019-11-16] MEDS: Propranolol 80 MG Cap.ER PO SCH (07:52)
[2019-11-16] MEDS: Nicotine 14 MG/24 Hr Patch TRDERM SCH (07:52)
[2019-11-16] MEDS: Potassium Chloride 10 MEQ Tab.ER PO SCH ×2 (07:53→16:53)
[2019-11-16] MEDS: chlordiazePOXIDE 10 MG Cap PO SCH ×2 (07:53→19:29)
[2019-11-16] MEDS: levETIRAcetam 500 MG Tab PO SCH ×2 (07:53→19:29)
[2019-11-16] MEDS: Thiamine 100 MG Tab PO SCH (19:29)
[2019-11-16] MEDS: Tamsulosin 0.4 MG Cap.ER PO SCH (19:29)
[2019-11-17] MEDS: Nicotine 14 MG/24 Hr Patch TRDERM SCH (07:57)
[2019-11-17] MEDS: Potassium Chloride 10 MEQ Tab.ER PO SCH ×2 (07:58→16:45)
[2019-11-17] MEDS: levETIRAcetam 500 MG Tab PO SCH ×2 (07:58→20:09)
[2019-11-17] MEDS: Propranolol 80 MG Cap.ER PO SCH (07:58)
[2019-11-17] MEDS: chlordiazePOXIDE 10 MG Cap PO SCH ×2 (07:58→20:10)
[2019-11-17] MEDS: Folic Acid 1 MG Tab PO SCH (07:58)
[2019-11-17] MEDS: traMADol 50 MG Tab PO PRN (08:00)
[2019-11-17] MEDS: Tamsulosin 0.4 MG Cap.ER PO SCH (20:10)
[2019-11-17] MEDS: Thiamine 100 MG Tab PO SCH (20:10)
[2019-11-18] MEDS: Folic Acid 1 MG Tab PO SCH (07:46)
[2019-11-18] MEDS: Propranolol 80 MG Cap.ER PO SCH (07:46)
[2019-11-18] MEDS: levETIRAcetam 500 MG Tab PO SCH ×2 (07:46→19:03)
[2019-11-18] MEDS: Nicotine 14 MG/24 Hr Patch TRDERM SCH (07:47)
[2019-11-18] MEDS: chlordiazePOXIDE 10 MG Cap PO SCH ×2 (07:47→19:02)
[2019-11-18] MEDS: Potassium Chloride 10 MEQ Tab.ER PO SCH ×2 (07:47→16:44)
[2019-11-18] MEDS: Polyethylene Glycol 3350 Powder 17 GM Packet PO PRN (14:07)
[2019-11-18] MEDS: Thiamine 100 MG Tab PO SCH (19:02)
[2019-11-18] MEDS: Tamsulosin 0.4 MG Cap.ER PO SCH (19:03)
[2019-11-19] MEDS: Potassium Chloride 10 MEQ Tab.ER PO SCH ×2 (07:42→17:10)
[2019-11-19] MEDS: chlordiazePOXIDE 10 MG Cap PO SCH ×2 (07:42→19:15)
[2019-11-19] MEDS: Nicotine 14 MG/24 Hr Patch TRDERM SCH (07:43)
[2019-11-19] MEDS: Propranolol 80 MG Cap.ER PO SCH (07:43)
[2019-11-19] MEDS: levETIRAcetam 500 MG Tab PO SCH ×2 (07:43→19:14)
[2019-11-19] MEDS: Folic Acid 1 MG Tab PO SCH (07:43)
[2019-11-19] MEDS: Thiamine 100 MG Tab PO SCH (19:14)
[2019-11-19] MEDS: Tamsulosin 0.4 MG Cap.ER PO SCH (19:15)
[2019-11-20] MEDS: Potassium Chloride 10 MEQ Tab.ER PO SCH ×2 (08:06→17:02)
[2019-11-20] MEDS: Polyethylene Glycol 3350 Powder 17 GM Packet PO PRN (08:06)
[2019-11-20] MEDS: Folic Acid 1 MG Tab PO SCH (08:06)
[2019-11-20] MEDS: Propranolol 80 MG Cap.ER PO SCH (08:06)
[2019-11-20] MEDS: chlordiazePOXIDE 10 MG Cap PO SCH ×2 (08:07→19:49)
[2019-11-20] MEDS: Nicotine 14 MG/24 Hr Patch TRDERM SCH (08:07)
[2019-11-20] MEDS: levETIRAcetam 500 MG Tab PO SCH ×2 (08:07→19:49)
[2019-11-20] MEDS: Tamsulosin 0.4 MG Cap.ER PO SCH (19:49)
[2019-11-20] MEDS: Thiamine 100 MG Tab PO SCH (19:49)
[2019-11-21] MEDS: Nicotine 14 MG/24 Hr Patch TRDERM SCH (08:36)
[2019-11-21] MEDS: levETIRAcetam 500 MG Tab PO SCH ×2 (08:37→19:54)
[2019-11-21] MEDS: chlordiazePOXIDE 10 MG Cap PO SCH ×2 (08:37→19:54)
[2019-11-21] MEDS: Potassium Chloride 10 MEQ Tab.ER PO SCH ×2 (08:37→17:28)
[2019-11-21] MEDS: Folic Acid 1 MG Tab PO SCH (08:37)
[2019-11-21] MEDS: Propranolol 80 MG Cap.ER PO SCH (08:37)
[2019-11-21] MEDS: Tamsulosin 0.4 MG Cap.ER PO SCH (19:54)
[2019-11-21] MEDS: Thiamine 100 MG Tab PO SCH (19:54)
[2019-11-22] MEDS: chlordiazePOXIDE 10 MG Cap PO SCH ×2 (08:30→19:25)
[2019-11-22] MEDS: Propranolol 80 MG Cap.ER PO SCH (08:30)
[2019-11-22] MEDS: Nicotine 14 MG/24 Hr Patch TRDERM SCH (08:30)
[2019-11-22] MEDS: levETIRAcetam 500 MG Tab PO SCH ×2 (08:30→19:25)
[2019-11-22] MEDS: Potassium Chloride 10 MEQ Tab.ER PO SCH ×2 (08:30→16:52)
[2019-11-22] MEDS: Folic Acid 1 MG Tab PO SCH (08:31)
[2019-11-22] MEDS: Tamsulosin 0.4 MG Cap.ER PO SCH (19:25)
[2019-11-22] MEDS: Thiamine 100 MG Tab PO SCH (19:25)
[2019-11-23] MEDS: Folic Acid 1 MG Tab PO SCH (07:53)
[2019-11-23] MEDS: Propranolol 80 MG Cap.ER PO SCH (07:53)
[2019-11-23] MEDS: levETIRAcetam 500 MG Tab PO SCH ×2 (07:54→19:12)
[2019-11-23] MEDS: Potassium Chloride 10 MEQ Tab.ER PO SCH ×2 (07:54→17:44)
[2019-11-23] MEDS: chlordiazePOXIDE 10 MG Cap PO SCH ×2 (07:54→19:12)
[2019-11-23] MEDS: Nicotine 14 MG/24 Hr Patch TRDERM SCH (07:54)
[2019-11-23] MEDS: Thiamine 100 MG Tab PO SCH (19:12)
[2019-11-23] MEDS: Tamsulosin 0.4 MG Cap.ER PO SCH (19:12)
[2019-11-23] MEDS: Acetaminophen 325 MG Tab PO PRN (22:01)
[2019-11-24] MEDS: Potassium Chloride 10 MEQ Tab.ER PO SCH ×2 (08:31→20:08)
[2019-11-24] MEDS: Propranolol 80 MG Cap.ER PO SCH (08:31)
[2019-11-24] MEDS: Folic Acid 1 MG Tab PO SCH (08:31)
[2019-11-24] MEDS: chlordiazePOXIDE 10 MG Cap PO SCH ×2 (08:32→20:08)
[2019-11-24] MEDS: levETIRAcetam 500 MG Tab PO SCH ×2 (08:32→20:08)
[2019-11-24] MEDS: Nicotine 14 MG/24 Hr Patch TRDERM SCH (08:32)
[2019-11-24] MEDS: Acetaminophen 325 MG Tab PO PRN (20:08)
[2019-11-24] MEDS: Tamsulosin 0.4 MG Cap.ER PO SCH (20:08)
[2019-11-24] MEDS: Thiamine 100 MG Tab PO SCH (20:08)
[2019-11-25] MEDS: Nicotine 14 MG/24 Hr Patch TRDERM SCH (07:44)
[2019-11-25] MEDS: Folic Acid 1 MG Tab PO SCH (07:44)
[2019-11-25] MEDS: Propranolol 80 MG Cap.ER PO SCH (07:44)
[2019-11-25] MEDS: Potassium Chloride 10 MEQ Tab.ER PO SCH ×2 (07:45→17:24)
[2019-11-25] MEDS: chlordiazePOXIDE 10 MG Cap PO SCH ×2 (07:45→19:41)
[2019-11-25] MEDS: levETIRAcetam 500 MG Tab PO SCH ×2 (07:45→19:41)
[2019-11-25] MEDS: Thiamine 100 MG Tab PO SCH (19:41)
[2019-11-25] MEDS: Tamsulosin 0.4 MG Cap.ER PO SCH (19:41)
[2019-11-25] MEDS: Acetaminophen 325 MG Tab PO PRN (19:41)
[2019-11-26] MEDS: Nicotine 14 MG/24 Hr Patch TRDERM SCH (07:22)
[2019-11-26] MEDS: Potassium Chloride 10 MEQ Tab.ER PO SCH ×2 (07:25→17:04)
[2019-11-26] MEDS: Folic Acid 1 MG Tab PO SCH (07:25)
[2019-11-26] MEDS: Propranolol 80 MG Cap.ER PO SCH (07:25)
[2019-11-26] MEDS: levETIRAcetam 500 MG Tab PO SCH ×2 (07:25→19:30)
[2019-11-26] MEDS: chlordiazePOXIDE 10 MG Cap PO SCH ×2 (07:25→19:30)
[2019-11-26] MEDS: Thiamine 100 MG Tab PO SCH (19:30)
[2019-11-26] MEDS: Tamsulosin 0.4 MG Cap.ER PO SCH (19:30)
[2019-11-26] MEDS: Acetaminophen 325 MG Tab PO PRN (19:32)
[2019-11-27] MEDS: Potassium Chloride 10 MEQ Tab.ER PO SCH ×2 (07:37→17:29)
[2019-11-27] MEDS: chlordiazePOXIDE 10 MG Cap PO SCH ×2 (07:37→19:41)
[2019-11-27] MEDS: Nicotine 14 MG/24 Hr Patch TRDERM SCH (07:37)
[2019-11-27] MEDS: Folic Acid 1 MG Tab PO SCH (07:37)
[2019-11-27] MEDS: Propranolol 80 MG Cap.ER PO SCH (07:37)
[2019-11-27] MEDS: levETIRAcetam 500 MG Tab PO SCH ×2 (07:37→19:40)
[2019-11-27] MEDS: Thiamine 100 MG Tab PO SCH (19:41)
[2019-11-27] MEDS: Tamsulosin 0.4 MG Cap.ER PO SCH (19:41)
[2019-11-27] MEDS: Acetaminophen 325 MG Tab PO PRN (20:46)
[2019-11-28 07:41] VITALS: BP 129/78; PULSE 76
[2019-11-28] MEDS: Propranolol 80 MG Cap.ER PO SCH (07:47)
[2019-11-28] MEDS: Acetaminophen 325 MG Tab PO PRN (07:47)
[2019-11-28] MEDS: Folic Acid 1 MG Tab PO SCH (07:47)
[2019-11-28] MEDS: chlordiazePOXIDE 10 MG Cap PO SCH (07:47)
[2019-11-28] MEDS: Potassium Chloride 10 MEQ Tab.ER PO SCH (07:48)
[2019-11-28] MEDS: Nicotine 14 MG/24 Hr Patch TRDERM SCH (07:48)
[2019-11-28] MEDS: levETIRAcetam 500 MG Tab PO SCH (07:48)
--- NOTE | 2019-11-28 10:13 | PCM.DCSUM1 ---
Discharge Summary - Hospital Course Diagnosis: Stroke: No Modified Cynthia Scale: No Symptoms at All Modified Cynthia Scale Score: 0 - Discharge Data Discharge Date: 11/28/19 Discharge Disposition: DC/Tfer to SNF 03 Condition: Fair - Referral to Home Health Primary Care Physician: Gustavo Schafer MD - Discharge Diagnosis/Problem(s) (1) Episode of unresponsiveness SNOMED Code(s): 425970523 ICD Code: R41.89 - OTH SYMPTOMS AND SIGNS W COGNITIVE FUNCTIONS AND AWARENESS Status: Acute Priority: High Current Visit: Yes (2) Alcohol abuse SNOMED Code(s): 61955257 ICD Code: F10.10 - ALCOHOL ABUSE, UNCOMPLICATED Status: Acute Priority: High Current Visit: Yes (3) Rhabdomyolysis SNOMED Code(s): 260819032 ICD Code: M62.82 - RHABDOMYOLYSIS Status: Acute Priority: High Current Visit: Yes Qualifiers: - Patient Summary/Data Consults: Consultations 11/10/19 15:11 Consult to Physical Therapy [PT Evaluation and Treatment] [CONS] Routine - Patient Instructions Diet: Usual Diet as Tolerated Activity: As Tolerated - Discharge Plan *PRESCRIPTION DRUG MONITORING PROGRAM REVIEWED*: No *COPY OF PRESCRIPTION DRUG MONITORING REPORT IN PATIENT MALENA: No Prescriptions/Med Rec: Folic Acid 1 mg PO DAILY #30 tablet Nicotine [Habitrol] 14 mg TRDERM DAILY #30 patch levETIRAcetam [Keppra] 500 mg PO BID #60 tablet Potassium Chloride [Klor-Con 10] 20 meq PO BIDMEALS #60 tab.er chlordiazePOXIDE [Librium] 10 mg PO BID #60 cap polyethylene glycoL 3350 [MiraLAX] 17 gm PO DAILY PRN #30 packet PRN Reason: Constipation Thiamine [Vitamin B-1] 100 mg PO BEDTIME #30 tablet Home Medications: Home Meds Propranolol HCl [Inderal Xl] 80 mg PO DAILY 11/04/19 [History] Tamsulosin [Flomax] 0.4 mg PO DAILY 11/04/19 [History] traMADol HCl [Tramadol HCl] 50 mg PO Q8HR PRN 11/04/19 [History] Folic Acid 1 mg PO DAILY #30 tablet 11/28/19 [Rx] Nicotine [Habitrol] 14 mg TRDERM DAILY #30 patch 11/28/19 [Rx] Potassium Chloride [Klor-Con 10] 20 meq PO BIDMEALS #60 tab.er 11/28/19 [Rx] Thiamine [Vitamin B-1] 100 mg PO BEDTIME #30 tablet 11/28/19 [Rx] chlordiazePOXIDE [Librium] 10 mg PO BID #60 cap 11/28/19 [Rx] levETIRAcetam [Keppra] 500 mg PO BID #60 tablet 11/28/19 [Rx] polyethylene glycoL 3350 [MiraLAX] 17 gm PO DAILY PRN #30 packet 11/28/19 [Rx] - Patient Data Vitals - Most Recent: Last Vital Signs Temp 98.6 F 11/28/19 07:39 Pulse 76 11/28/19 07:39 Resp 18 11/28/19 07:39 BP 129/78 11/28/19 07:39 Pulse Ox 96 11/28/19 07:39 Weight - Most Recent: 135 lb Lab Results - Last 24 hrs: Laboratory Results - last 24 hr 11/27/19 Range/Units 14:23 COVID-19 ([facility]) Negative (NEGATIVE) Med Orders - Current: Current Medications Acetaminophen (Tylenol) 325 mg PO Q4H PRN PRN Reason: Pain Last Admin: 11/28/19 07:47 Dose: 325 mg Documented by: Chlordiazepoxide HCl (Librium) 10 mg PO BID [facility] Last Admin: 11/28/19 07:47 Dose: 10 mg Documented by: Folic Acid (Folic Acid) 1 mg PO DAILY [facility] Last Admin: 11/28/19 07:47 Dose: 1 mg Documented by: Levetiracetam (Keppra) 500 mg PO BID [facility] Last Admin: 11/28/19 07:48 Dose: 500 mg Documented by: Lorazepam (Ativan) 2 mg IVPUSH Q2H PRN PRN Reason: Anxiety Nicotine (Habitrol) 14 mg TRDERM DAILY [facility] Last Admin: 11/28/19 07:48 Dose: 14 mg Documented by: Ondansetron HCl (Zofran) 4 mg IV Q6H PRN PRN Reason: Nausea/Vomiting Polyethylene Glycol (Miralax) 17 gm PO DAILY PRN PRN Reason: Constipation Last Admin: 11/20/19 08:06 Dose: 17 gm Documented by: Potassium Chloride (Klor-Con 10) 20 meq PO BIDMEALS [facility] Last Admin: 11/28/19 07:48 Dose: 20 meq Documented by: Propranolol HCl (Inderal La) 80 mg PO DAILY [facility] Last Admin: 11/28/19 07:47 Dose: 80 mg Documented by: Tamsulosin HCl (Flomax) 0.4 mg PO BEDTIME [facility] Last Admin: 11/27/19 19:41 Dose: 0.4 mg Documented by: Thiamine HCl (Vitamin B-1) 100 mg PO BEDTIME [facility] Last Admin: 11/27/19 19:41 Dose: 100 mg Documented by: Tramadol HCl (Ultram) 50 mg PO Q8H PRN PRN Reason: Pain Last Admin: 11/17/19 08:00 Dose: 50 mg Documented by: Discontinued Medications Chlordiazepoxide HCl (Librium) 20 mg PO TID [facility] Last Admin: 11/13/19 07:28 Dose: 20 mg Documented by: Diazepam (Valium.) 5 mg PO TID PRN PRN Reason: Agitation Enoxaparin Sodium (Lovenox) 40 mg SUBCUT Q24H [facility] Last Admin: 11/12/19 22:44 Dose: 40 mg Documented by: Flumazenil (Romazicon) Confirm Administered Dose 0.5 mg .ROUTE .STK-MED ONE Stop: 11/13/19 09:26 Last Admin: 11/13/19 11:13 Dose: Not Given Documented by: Flumazenil (Romazicon) 0.4 mg IVPUSH STAT STA Stop: 11/13/19 09:11 Last Admin: 11/13/19 09:10 Dose: 0.4 mg Documented by: Haloperidol (Haldol) 1 mg PO Q1H PRN PRN Reason: Hallucinations Haloperidol Lactate (Haldol) 1 mg IM Q1H PRN PRN Reason: Hallucinations Sodium Chloride (Normal Saline) 1,000 mls @ 50 mls/hr IV ASDIRECTED NIM[facility] Stop: 11/09/19 12:00 Last Admin: 11/08/19 22:20 Dose: 50 mls/hr Documented by: Thiamine HCl 100 mg/ Sodium (Chloride) 101 mls @ 202 mls/hr IV DAILY [facility] Last Admin: 11/09/19 13:20 Dose: Not Given Documented by: Sodium Chloride (Normal Saline) 1,000 mls @ 999 mls/hr IV ONETIME ONE Stop: 11/13/19 10:10 Last Admin: 11/13/19 09:10 Dose: 999 mls/hr Documented by: Levetiracetam (Keppra) 500 mg PO BID [facility]
== END 2019-11-28 10:15 | DRG 558 ==
LOC: CC.MS 10:34 → UNDOADMIN 11:31
PROVIDERS: ADMIT Family Medicine; ATTEND Family Medicine
DX: M62.82 Rhabdomyolysis (principal); E87.1 Hypo-osmolality and hyponatremia; R41.89 Other symptoms and signs involving cognitive functions and awareness; F10.10 Alcohol abuse, uncomplicated; Z20.828 Contact with and (suspected) exposure to other viral communicable diseases
CPT/HCPCS: 36415; 70450; 80053; 82550; 82962; 84484; 85025; 85610; 93005; 97110-GP; 97112-GP; 97530-GP; A9270-GY; J1650; J3490; J7030; U0002

== ENCOUNTER → 2022-06-02 | Day surgery (SDC) | payer MEDICARE, MEDICAID ==
[~2022-06-02] MED LIST: Flumazenil 0.1 MG/ML 10 ML MDV ONE; Ketamine 200 MG/20 ML MDV ONE; Midazolam 1 MG/ML 2 ML SDV ONE; Phenylephrine 1% 10 MG/ML SDV ONE; Propofol 200 MG/20 ML SDV ONE; fentaNYL 50 MCG/ML SDV ONE
[2022-06-02] MEDS: Lactated Ringers 1,000 ML IV SCH (08:35)
== END ==
LOC: CC.SDS 08:14
PROVIDERS: ATTEND Family Medicine
DX: D12.7 Benign neoplasm of rectosigmoid junction (principal); D17.79 Benign lipomatous neoplasm of other sites; K57.30 Diverticulosis of large intestine without perforation or abscess without bleeding; K64.8 Other hemorrhoids; F32.A Depression, unspecified; I10 Essential (primary) hypertension; M15.9 Polyosteoarthritis, unspecified; N40.0 Benign prostatic hyperplasia without lower urinary tract symptoms; F10.20 Alcohol dependence, uncomplicated; F17.210 Nicotine dependence, cigarettes, uncomplicated; Z79.899 Other long term (current) drug therapy
CPT/HCPCS: 00811; 88305; J2250; J2370; J2704; J3010; J3490; J7120